=== PATIENT | male | born 1945 ===

== ENCOUNTER 2018-04-13 18:26 | Inpatient (IN) | payer MEDICARE ==
[~2018-04-13] VITALS: Ht 172.7 cm; Wt 89.8 kg
--- NOTE | 2018-04-13 18:30 | ED.ADGEN ---
Past History Past Medical History: CVA, Dementia, Depression, Other Past Surgical History: Other Adult General Chief Complaint Chief Complaint " .. My daughter sent me here... because she was worried I was having depression problems... " HPI HPI Patient is a 73 year old male who presents with above hx and complaints of depression. Pt. is a resident at [facility] since 12/28/2009. Pt. currently advised he has been depressed about his over all medical condition and two recent fellow pts residents that have been disruptive to his life at [place]. Pt. denies specific suicidal plan, but has had suicidal thoughts, or ideation. Pt.. states one of the new residence is up at many times during the night which causes disruption in his sleep. Patient does have a significant medical history of left-sided paraplegia. He has multiple medical problems secondary to CVA. Patient does have a history of dysphagia, diabetes, hypertension, chronic kidney disease, elevated cholesterol, iron deficiency anemia, anxiety disorder, heart failure, left-sided contractures, vitamin deficiencies -B, GERD, vascular dementia, behavior disturbance, constipation,dementia, and bipolar. Pt. has followed at [place] in past . Pt. Follows with Dr. Donte Ruiz. Pt. sent to ED for medical eval. prior to admission to [facility] unit. Review of Systems Review of Systems Constitutional: Denies fever or chills [] Eyes: Denies change in visual acuity, redness, or eye pain [] HENT: Denies nasal congestion or sore throat [] Respiratory: Denies cough or shortness of breath [] Cardiovascular: No additional information not addressed in HPI [] GI: Denies abdominal pain, nausea, vomiting, bloody stools or diarrhea [] : Denies dysuria or hematuria [] Musculoskeletal: Denies back pain or joint pain []Complaints of Lt paraplegia Integument: Denies rash or skin lesions [] Neurologic: Denies headache, focal weakness or sensory changes [] Endocrine: Denies polyuria or polydipsia [] All other systems were reviewed and found to be within normal limits, except as documented in this note. Family History Family History Noncontributory Current Medications Current Medications Current Medications Medications (Trade) Dose Ordered Sig/Shyam Start Time Stop Time Status Last Admin Dose Admin Lactated Ringer's 1,000 ml @ 100 mls/hr Q10H 04/13/18 18:32 04/14/18 04:31 DC 04/13/18 20:14 100 MLS/HR See nursing for group home medications Allergies Allergies Allergies Coded Allergies Type Severity Reaction Last Updated Verified morphine Allergy Unknown 04/13/18 Yes Physical Exam Physical Exam Constitutional: no acute distress, non-toxic appearance. [] HENT: Normocephalic, atraumatic, bilateral external ears normal, oropharynx moist, no oral exudates, nose normal. [] Eyes: PERRLA, EOMI, conjunctiva normal, no discharge. [] Neck: Normal range of motion, no tenderness, supple, no stridor. [] Cardiovascular:Heart rate regular rhythm, no murmur [] Lungs & Thorax: Bilateral breath sounds equal at apexes auscultation [] Abdomen: Bowel sounds normal, soft, no tenderness, no masses, no pulsatile masses. Scar. Distended abdomen Skin: Warm, dry, no erythema, no rash. [] Back: No tenderness, no CVA tenderness. [] Extremities: No tenderness, no cyanosis, no clubbing, sided paraplegic with contractions, no edema. [] Neurologic: Alert and oriented X 3, reports no changes in his motor function or sensory function, left-sided paraplegia with contractures Psychologic: Affect anxious, judgement unable to determine, mood depressed Current Patient Data Vital Signs Vital Signs Date Time Temp Pulse Resp B/P (MAP) Pulse Ox O2 Delivery O2 Flow Rate FiO2 04/13/18 22:35 84 22 155/74 (101) 97 Room Air 04/13/18 19:21 98.4 Lab Results Laboratory Tests Test 04/13/18 19:09 White Blood Count 9.5 x10^3/uL (4.0-11.0) Red Blood Count 4.23 x10^6/uL (4.30-5.70) L Hemoglobin 13.6 g/dL (13.0-17.5) Hematocrit 40.7 % (39.0-53.0) Mean Corpuscular Volume 96 fL (79-100) Mean Corpuscular Hemoglobin 32 pg (25-35) Mean Corpuscular Hemoglobin Concent 34 g/dL (31-37) Red Cell Distribution Width 14.5 % (11.5-14.5) Platelet Count 302 x10^3/uL (140-400) Neutrophils (%) (Auto) 43 % (31-73) Lymphocytes (%) (Auto) 45 % (24-48) Monocytes (%) (Auto) 9 % (0-9) Eosinophils (%) (Auto) 2 % (0-3) Basophils (%) (Auto) 1 % (0-3) Neutrophils # (Auto) 4.1 x10^3uL (1.8-7.7) Lymphocytes # (Auto) 4.2 x10^3/uL (1.0-4.8) Monocytes # (Auto) 0.9 x10^3/uL (0.0-1.1) Eosinophils # (Auto) 0.2 x10^3/uL (0.0-0.7) Basophils # (Auto) 0.1 x10^3/uL (0.0-0.2) Erythrocyte Sedimentation Rate 35 (0-15) H Prothrombin Time 9.6 SEC (9.4-11.4) Prothrombin Time INR 1.0 (0.9-1.1) PTT 25 SEC (23-33) D-Dimer (Radha) 0.52 mg/L (0.00-0.50) H Sodium Level 138 mmol/L (136-145) Potassium Level 4.5 mmol/L (3.5-5.1) Chloride Level 103 mmol/L (98-107) Carbon Dioxide Level 28 mmol/L (21-32) Anion Gap 7 (6-14) Blood Urea Nitrogen 28 mg/dL (8-26) H Creatinine 1.8 mg/dL (0.7-1.3) H Estimated GFR (Cockcroft-Gault) 37.2 Glucose Level 90 mg/dL (70-99) Calcium Level 9.6 mg/dL (8.5-10.1) Magnesium Level 2.2 mg/dL (1.8-2.4) Total Bilirubin 0.2 mg/dL (0.2-1.0) Direct Bilirubin 0.1 mg/dL (0.0-0.2) Aspartate Amino Transferase (AST) 51 U/L (15-37) H Alanine Aminotransferase (ALT) 103 U/L (16-63) H Alkaline Phosphatase 144 U/L (46-116) H Creatine Kinase 126 U/L (39-308) Troponin I Quantitative 0.021 ng/mL (0-0.055) VO-Osv-E-Type Natriuretic Peptide 52 pg/mL (0-124) Total Protein 7.7 g/dL (6.4-8.2) Albumin 3.9 g/dL (3.4-5.0) Lipase 234 U/L (73-393) EKG EKG My interpretation of EKG shows a sinus rhythm at 81 bpm. Some nonspecific contour changes in anterior septal region. But no findings acute STEMI with contralateral changes[] Radiology/Procedures Radiology/Procedures My interpretation of chest x-ray shows no acute cardio pulmonary findings. I interpretation CT shows no acute cerebral findings. Has findings of old infarct right frontal with encephalomalacia. See formal reports wihen available. Course & Med Decision Making Course & Med Decision Making Pertinent Labs and Imaging studies reviewed. (See chart for details) UA still pending at time of Admit- Pt. admit [facility]- Dr Flynn. Consult to Dr. Elizondo- for medical issues. Discussed with Dr. Elizondo. [] Final Impression Final Impression 1. Mental Status change[]-Increased Depression, Suicidal Ideation. 2. Left-sided paraplegia 3. History of diabetes 4. Elevated BUN and creatinine 28/1.8 5. Minimal elevation in d-dimer 0.5 2 6. Mild elevation in AST, ALT, alkaline phosphatase 51/103/144 7. Hx. Multiple Chronic Medical Issues Dragon Disclaimer Dragon Disclaimer This electronic medical record was generated, in whole or in part, using a voice recognition dictation system. TORI MCCLOUD MD Apr 13, 2018 18:30
[2018-04-13] MEDS ORDERED: IV RINGERS SOLUTION,LACTATED 1,000 ML IV SCH (18:32)
--- NOTE | 2018-04-13 19:15 | EKG ---
[address] [address] Test Date: 2018-04-13 Test Time: 19:09:48 Pat Name: REYNOLD GONZALEZ Department: Room: Gender: M Court Collections Officer: : 1945 Requested By: TORI MCCLOUD Order Number: [id number] Reading MD: Uriel Degroot Measurements Intervals [place] Rate: 81 P: 1 TN: 190 QRS: 12 QRSD: 78 T: 43 QT: 348 QTc: 409 Interpretive Statements SINUS RHYTHM QRS(T) CONTOUR ABNORMALITY CONSIDER ANTEROSEPTAL MYOCARDIAL DAMAGE POSSIBLY ABNORMAL ECG Electronically Signed On 04-16-2018 10:58:37 CDT by Uriel Degroot
--- NOTE | 2018-04-13 19:17 | RAD ---
EXAM: CT Head without IV contrast CLINICAL HISTORY: Mental status change, confusion COMPARISON: None. TECHNIQUE: Routine CT of the head without contrast. Soft tissues and bone windows were reviewed. PQRS compliance statement - One or more of the following individualized dose reduction techniques were utilized for this study: 1. Automated exposure control 2. Adjustment of the mA and/or kV according to patient size 3. Use of iterative reconstruction technique FINDINGS: There is no evidence of hemorrhage, mass or extra-axial fluid collection. Changes from old infarct with associated encephalomalacia seen in the right frontoparietal region extending to the deep white matter. Jaramillo-white differentiation is otherwise maintained with no evidence of edema. There are non-specific foci of hypodensity in the periventricular and subcortical white matter of the cerebral hemispheres. There is no mass effect or shift of the intracranial structures. The ventricles and cerebral sulci are prominent for the patients stated age consistent with generalized cerebral volume loss. The cerebellum and brainstem are unremarkable. The calvarium demonstrates no evidence of fracture or focal lesion. There is normal aeration of the visualized paranasal sinuses and mastoid air cells. The visualized portions of the orbits are normal. IMPRESSION: No evidence of acute intracranial process. Old infarct in the right frontoparietal region with associated encephalomalacia is seen. Electronically signed by: Mark Sandra MD (04/13/2018 7:14 PM) [facility]
--- NOTE | 2018-04-13 19:20 | RAD ---
EXAM: PORTABLE CHEST 1V DATE: 04/13/2018 6:53 PM INDICATION: Cough COMPARISON: No Prior FINDINGS/ IMPRESSION: The heart is not enlarged. Mediastinal and hilar contours are normal. No focal parenchymal airspace opacity. No pleural effusion or pneumothorax. Electronically signed by: Mark Sandra MD (04/13/2018 7:17 PM) [facility]
[2018-04-13 19:30] LABS: BASO # 0.1 x10^3/uL (0.0-0.2); BASO % 1 % (0-3); EOS # 0.2 x10^3/uL (0.0-0.7); EOS % 2 % (0-3); HEMATOCRIT 40.7 % (39.0-53.0); HEMOGLOBIN 13.6 g/dL (13.0-17.5); LYMPH # 4.2 x10^3/uL (1.0-4.8); LYMPH % 45 % (24-48); MEAN CORPUSCULAR HEMOGLOBIN 32 pg (25-35); MEAN CORPUSCULAR HGB CONC 34 g/dL (31-37); MEAN CORPUSCULAR VOLUME 96 fL (79-100); MONO # 0.9 x10^3/uL (0.0-1.1); MONO % 9 % (0-9); NEUT # 4.1 x10^3uL (1.8-7.7); NEUT % 43 % (31-73); PLATELET COUNT 302 x10^3/uL (140-400); RED BLOOD COUNT 4.23 x10^6/uL (4.30-5.70); RED CELL DISTRIBUTION WIDTH 14.5 % (11.5-14.5); WHITE BLOOD COUNT 9.5 x10^3/uL (4.0-11.0)
[2018-04-13 19:43] LABS: ALBUMIN 3.9 g/dL (3.4-5.0); CALCIUM 9.6 mg/dL (8.5-10.1); CREATININE 1.8 mg/dL (0.7-1.3); DIRECT BILIRUBIN 0.1 mg/dL (0.0-0.2); GFR 37.2; MAGNESIUM 2.2 mg/dL (1.8-2.4); POTASSIUM 4.5 mmol/L (3.5-5.1); TOTAL BILIRUBIN 0.2 mg/dL (0.2-1.0); TOTAL PROTEIN 7.7 g/dL (6.4-8.2)
[2018-04-13 20:40] LABS: SEDIMENTATION RATE 35 (0-15)
[2018-04-13] MEDS ORDERED: TRAZ-85 PO (21:43)
[2018-04-13] MEDS ORDERED: CHOL10003 PO (21:43)
[2018-04-13] MEDS ORDERED: BISA5TAB4 PO (21:43)
[2018-04-13] MEDS ORDERED: LISI10TA2 PO (21:43)
[2018-04-13] MEDS ORDERED: ASPI-612 PO (21:43)
[2018-04-13] MEDS ORDERED: BUSP10TA PO (21:43)
[2018-04-13] MEDS ORDERED: POLY17PO5 PO (21:43)
[2018-04-13] MEDS ORDERED: INSU100I13 SQ (21:43)
[2018-04-13] MEDS ORDERED: FINA5TAB4 PO (21:43)
[2018-04-13] MEDS ORDERED: VENL75CA6 PO (21:43)
[2018-04-13] MEDS ORDERED: BACL10TA PO (21:43)
[2018-04-13] MEDS ORDERED: CLOP75TA PO (21:43)
[2018-04-13] MEDS ORDERED: INSU100I11 SQ (21:43)
[2018-04-13] MEDS ORDERED: AMLO5TAB7 PO (21:43)
[2018-04-13] MEDS ORDERED: CYAN500T17 PO (21:43)
[2018-04-13] MEDS ORDERED: MAGNESIUM HYDROXIDE 2,400 MG/30 ML ORAL.SUSP. PO PRN (22:45)
[2018-04-13] MEDS ORDERED: ACETAMINOPHEN 325 MG TABLET PO PRN (22:45)
[2018-04-13] MEDS ORDERED: MAG HYDROX/AL HYDROX/SIMETH 30 ML ORAL.SUSP PO PRN (22:45)
[2018-04-13] MEDS ORDERED: METHYL SALICYLATE/MENTHOL TOPICAL OINTMENT 29GM TUBE. TP PRN (22:45)
--- NOTE | 2018-04-13 22:59 | PDOC ---
Exam Note: Clayton Note: Please also refer to the separate dictated note~for this date of service dictated separately.~Patient seen individually. Discussed the patient with Nursing staff reviewed the chart.~Reviewed interim history and current functioning. Reviewed vital signs,~Labs/ Radiology~and current medications noted below. Continue current treatment with the changes noted in the dictated addendum note Assessment: Vital Signs: Vital Signs Date Time Temp Pulse Resp B/P (MAP) Pulse Ox O2 Delivery O2 Flow Rate FiO2 04/13/18 22:35 84 22 155/74 (101) 97 Room Air 04/13/18 19:21 98.4 Labs: Laboratory Tests Test 04/13/18 19:09 White Blood Count 9.5 x10^3/uL (4.0-11.0) Red Blood Count 4.23 x10^6/uL (4.30-5.70) L Hemoglobin 13.6 g/dL (13.0-17.5) Hematocrit 40.7 % (39.0-53.0) Mean Corpuscular Volume 96 fL (79-100) Mean Corpuscular Hemoglobin 32 pg (25-35) Mean Corpuscular Hemoglobin Concent 34 g/dL (31-37) Red Cell Distribution Width 14.5 % (11.5-14.5) Platelet Count 302 x10^3/uL (140-400) Neutrophils (%) (Auto) 43 % (31-73) Lymphocytes (%) (Auto) 45 % (24-48) Monocytes (%) (Auto) 9 % (0-9) Eosinophils (%) (Auto) 2 % (0-3) Basophils (%) (Auto) 1 % (0-3) Neutrophils # (Auto) 4.1 x10^3uL (1.8-7.7) Lymphocytes # (Auto) 4.2 x10^3/uL (1.0-4.8) Monocytes # (Auto) 0.9 x10^3/uL (0.0-1.1) Eosinophils # (Auto) 0.2 x10^3/uL (0.0-0.7) Basophils # (Auto) 0.1 x10^3/uL (0.0-0.2) Erythrocyte Sedimentation Rate 35 (0-15) H Prothrombin Time 9.6 SEC (9.4-11.4) Prothrombin Time INR 1.0 (0.9-1.1) PTT 25 SEC (23-33) D-Dimer (Radha) 0.52 mg/L (0.00-0.50) H Sodium Level 138 mmol/L (136-145) Potassium Level 4.5 mmol/L (3.5-5.1) Chloride Level 103 mmol/L (98-107) Carbon Dioxide Level 28 mmol/L (21-32) Anion Gap 7 (6-14) Blood Urea Nitrogen 28 mg/dL (8-26) H Creatinine 1.8 mg/dL (0.7-1.3) H Estimated GFR (Cockcroft-Gault) 37.2 Glucose Level 90 mg/dL (70-99) Calcium Level 9.6 mg/dL (8.5-10.1) Magnesium Level 2.2 mg/dL (1.8-2.4) Total Bilirubin 0.2 mg/dL (0.2-1.0) Direct Bilirubin 0.1 mg/dL (0.0-0.2) Aspartate Amino Transferase (AST) 51 U/L (15-37) H Alanine Aminotransferase (ALT) 103 U/L (16-63) H Alkaline Phosphatase 144 U/L (46-116) H Creatine Kinase 126 U/L (39-308) Troponin I Quantitative 0.021 ng/mL (0-0.055) CQ-Vur-E-Type Natriuretic Peptide 52 pg/mL (0-124) Total Protein 7.7 g/dL (6.4-8.2) Albumin 3.9 g/dL (3.4-5.0) Lipase 234 U/L (73-393) Current Medications: Meds: Current Medications Lactated Ringer's 1,000 ml @ 100 mls/hr Q10H IV Last administered on at 20:14; Start 04/13/18 at 18:32; Stop 04/14/18 at 04:31 Acetaminophen (Tylenol) 650 mg PRN Q6HRS PRN PO PAIN / TEMP; Start 04/13/18 at 22:45 Multi-Ingredient Ointment (Analgesic [place]) 1 gila PRN QID PRN TP MUSCLE PAIN; Start 04/13/18 at 22:45 Al Hydroxide/Mg Hydroxide (Mylanta Plus Xs) 15 ml PRN AFTMEALHC PRN PO DYSPEPSIA; Start 04/13/18 at 22:45 Magnesium Hydroxide (Milk Of Magnesia) 2,400 mg PRN QHS PRN PO CONSTIPATION; Start 04/13/18 at 22:45 Bisacodyl (Dulcolax Tab) 5 mg PRN DAILY PRN PO CONSTIPATION; Start 04/13/18 at 23:00; Status UNV Vitamin D (Vitamin D3) 1,000 unit DAILY PO ; Start 04/14/18 at 09:00; Status UNV Clopidogrel Bisulfate (Plavix) 75 mg DAILY PO ; Start 04/14/18 at 09:00; Status UNV Insulin Glargine (Lantus) 36 units BID SQ ; Start 04/14/18 at 09:00; Status UNV Insulin Human Lispro (HumaLOG) 32 units TIDWMEALS SQ ; Start 04/14/18 at 08:00; Status UNV Lisinopril (Prinivil) 10 mg DAILY PO ; Start 04/14/18 at 09:00; Status UNV Amlodipine Besylate (Norvasc) 5 mg DAILY PO ; Start 04/14/18 at 09:00; Status UNV Aspirin (Aspirin Enteric Coated) 81 mg DAILYWBKFT PO ; Start 04/14/18 at 08:00; Status UNV Baclofen (Lioresal) 5 mg TID PO ; Start 04/14/18 at 09:00; Status UNV Buspirone HCl (Buspar) 10 mg TID PO ; Start 04/14/18 at 09:00; Status UNV Cyanocobalamin (Vitamin B-12) 500 mcg DAILY PO ; Start 04/14/18 at 09:00; Status UNV Finasteride (Proscar) 5 mg DAILY PO ; Start 04/14/18 at 09:00; Status UNV Polyethylene Glycol (miraLAX) 17 gm DAILY PO ; Start 04/14/18 at 09:00; Status UNV Trazodone HCl (Desyrel) 50 mg QHS PO ; Start 04/13/18 at 23:00; Status UNV Venlafaxine HCl (Effexor Xr) 112.5 mg DAILY PO ; Start 04/14/18 at 09:00; Status UNV Active Scripts Active Reported Humalog (Insulin Lispro) 100 Unit/1 Ml Insuln.pen 2-10 Unit SQ TIDWMEALS Buspirone Hcl 10 Mg Tablet 10 Mg PO TID Venlafaxine Hcl Er (Venlafaxine Hcl) 75 Mg Cap.er.24h 112.5 Mg PO DAILY Trazodone Hcl 50 Mg Tablet 50 Mg PO HS Lantus Solostar (Insulin Glargine,Hum.rec.anlog) 100 Unit/1 Ml Insuln.pen 36 Unit SQ BID Baclofen 10 Mg Tablet 5 Mg PO TID Humalog (Insulin Lispro) 100 Unit/1 Ml Insuln.pen 32 Unit SQ TIDWMEALS Miralax (Polyethylene Glycol 3350) 17 Gm Powd.pack 17 Gm PO DAILY Lisinopril 10 Mg Tablet 10 Mg PO DAILY Finasteride 5 Mg Tablet 5 Mg PO DAILY B-12 (Cyanocobalamin (Vitamin B-12)) 500 Mcg Tablet 500 Mcg PO DAILY Clopidogrel (Clopidogrel Bisulfate) 75 Mg Tablet 75 Mg PO DAILY Vitamin D3 (Cholecalciferol (Vitamin D3)) 1,000 Unit Tablet 1,000 Unit PO DAILY Bisacodyl 5 Mg Tablet. 5 Mg PO PRN DAILY PRN Amlodipine Besylate 5 Mg Tablet 5 Mg PO DAILY Aspirin Ec (Aspirin) 81 Mg Tablet.dr 81 Mg PO DAILY I have reviewed the current psychotropics carefully including drug interactions. Risk benefit ratio favors no change other than as noted in my dictated progress note. Diagnosis: Problems: (1) Altered mental status, unspecified ANTHONY MCMAHAN MD Apr 13, 2018 22:59
[2018-04-13] MEDS ORDERED: traZODone 50 MG TABLET. PO SCH (23:00)
[2018-04-13] MEDS ORDERED: BACLOFEN 10 MG TABLET PO SCH (23:00)
[2018-04-13] MEDS: BACLOFEN 10 MG TABLET PO SCH (23:00)
[2018-04-13] MEDS ORDERED: BISACODYL TAB 5 MG TABLET.DR. PO PRN (23:00)
[2018-04-13] MEDS: busPIRone 10 MG TABLET. PO SCH (23:15)
[2018-04-13] MEDS ORDERED: DEXTROSE 50% 25 GM / 50ML DISP.SYRIN. IV PRN (23:15)
[2018-04-13] MEDS: traZODone 50 MG TABLET. PO SCH (23:15)
[2018-04-13 23:49] VITALS: BP 161/80
[2018-04-14 05:33] LABS: BACTERIA,URINE 0 /HPF (0-FEW); BILIRUBIN,URINE NEG (NEG); CLARITY,URINE CLEAR; COLOR,URINE STRAW; GLUCOSE,URINE NEG (NEG); NITRITE,URINE NEG (NEG); RBC,URINE OCC /HPF (0-2); UROBILINOGEN,URINE 0.2 mg/dL (0.2 mg/dL); WBC,URINE OCC /HPF (0-4)
[2018-04-14 06:14] VITALS: BP 133/64
[2018-04-14 08:18] LABS: BASO % 1 % (0-3); EOS # 0.2 x10^3/uL (0.0-0.7); EOS % 3 % (0-3); HEMATOCRIT 39.6 % (39.0-53.0); HEMOGLOBIN 13.4 g/dL (13.0-17.5); LYMPH # 2.9 x10^3/uL (1.0-4.8); LYMPH % 37 % (24-48); MEAN CORPUSCULAR HEMOGLOBIN 32 pg (25-35); MEAN CORPUSCULAR HGB CONC 34 g/dL (31-37); MEAN CORPUSCULAR VOLUME 96 fL (79-100); MONO # 0.6 x10^3/uL (0.0-1.1); MONO % 7 % (0-9); NEUT # 4.1 x10^3uL (1.8-7.7); NEUT % 53 % (31-73); PLATELET COUNT 301 x10^3/uL (140-400); RED BLOOD COUNT 4.14 x10^6/uL (4.30-5.70); RED CELL DISTRIBUTION WIDTH 14.6 % (11.5-14.5); WHITE BLOOD COUNT 7.8 x10^3/uL (4.0-11.0)
[2018-04-14 08:26] LABS: CALCIUM 9.5 mg/dL (8.5-10.1); CREATININE 1.7 mg/dL (0.7-1.3); GFR 39.7; POTASSIUM 5.1 mmol/L (3.5-5.1)
[2018-04-14] MEDS: busPIRone 10 MG TABLET. PO SCH ×3 (08:45→20:40)
[2018-04-14] MEDS: BACLOFEN 10 MG TABLET PO SCH ×3 (08:46→20:40)
[2018-04-14] MEDS: VENLAFAXINE XR 37.5 MG CAP.ER.24H. PO SCH (08:48)
[2018-04-14] MEDS: ASPIRIN ENTERIC COATED 81 MG TABLET.DR. PO SCH (08:48)
[2018-04-14] MEDS: INSULIN GLARGINE 300 UNITS/3 ML INSULN.PEN. SQ SCH ×2 (09:00→20:42)
[2018-04-14] MEDS: CYANOCOBALAMIN (VITAMIN B-12) 1,000 MCG TABLET. PO SCH (09:00)
[2018-04-14] MEDS: FINASTERIDE 5 MG TABLET PO SCH (09:00)
[2018-04-14] MEDS ORDERED: BACLOFEN 10 MG TABLET PO SCH (09:00)
[2018-04-14] MEDS ORDERED: VENLAFAXINE XR 37.5 MG CAP.ER.24H. PO SCH (09:00)
[2018-04-14] MEDS: POLYETHYLENE GLYCOL 3350 17 GM PACKET. PO SCH (09:00)
[2018-04-14] MEDS: CLOPIDOGREL BISULFATE 75 MG TABLET PO SCH (09:00)
[2018-04-14] MEDS ORDERED: busPIRone 10 MG TABLET. PO SCH (09:00)
[2018-04-14] MEDS: CHOLECALCIFEROL (VITAMIN D3) 1,000 UNIT TABLET PO SCH (09:00)
[2018-04-14] MEDS: LISINOPRIL 10 MG TABLET PO SCH (09:00)
[2018-04-14] MEDS: amLODIPine BESYLATE 5 MG TABLET PO SCH (09:00)
[2018-04-14] MEDS: INSULIN LISPRO 300 UNITS/3 ML INSULN.PEN. SQ SCH ×6 (10:11→17:00)
[2018-04-14 12:10] LABS: THYROXINE 6.7 ug/dL (4.5-12.0)
--- NOTE | 2018-04-14 13:05 | RAD ---
Bilateral lower extremity venous ultrasound: History: Increased d-dimer, edema Sonographic evaluation including grayscale, color flow and spectral Doppler analysis of the deep veins of the lower extremities was performed. The femoral and popliteal veins demonstrate normal compressibility and normal responses to distal augmentation maneuvers. Color imaging of those vessels shows no evidence of intraluminal clot. The visualized deep veins in both calves are patent. IMPRESSION: There is no sonographic evidence of deep vein thrombosis in either lower extremity. Electronically signed by: Matthew Abreu MD (04/14/2018 1:02 PM) [facility]
[2018-04-14 16:30] VITALS: BP 143/79
[2018-04-14] MEDS: traZODone 50 MG TABLET. PO SCH (20:39)
--- NOTE | 2018-04-14 21:01 | PDOC ---
Exam Note: Clayton Note: Please also refer to the separate dictated note~for this date of service dictated separately.~Patient seen individually. Discussed the patient with Nursing staff reviewed the chart.~Reviewed interim history and current functioning. Reviewed vital signs,~Labs/ Radiology~and current medications noted below. Continue current treatment with the changes noted in the dictated addendum note Assessment: Vital Signs: Vital Signs Date Time Temp Pulse Resp B/P (MAP) Pulse Ox O2 Delivery O2 Flow Rate FiO2 04/14/18 16:30 97.9 76 20 143/79 (100) 98 04/14/18 06:14 Room Air I&O Intake and Output 04/14/18 07:00 Intake Total 490 ml Balance 490 ml Intake Oral 240 ml IV Total 250 ml Labs: Laboratory Tests Test 04/14/18 03:45 04/14/18 07:30 04/14/18 10:06 04/14/18 12:39 Urine Collection Type Unknown Urine Color Straw Urine Clarity Clear Urine pH 7.0 Urine Specific [place] 1.010 Urine Protein Neg (NEG-TRACE) Urine Glucose (UA) Neg mg/dL (NEG) Urine Ketones (Stick) Neg mg/dL (NEG) Urine Blood Neg (NEG) Urine Nitrite Neg (NEG) Urine Bilirubin Neg (NEG) Urine Urobilinogen Dipstick 0.2 mg/dL (0.2 mg/dL) Urine Leukocyte Esterase Neg (NEG) Urine RBC Occ /HPF (0-2) Urine WBC Occ /HPF (0-4) Urine Squamous Epithelial Cells None /LPF Urine Bacteria 0 /HPF (0-FEW) White Blood Count 7.8 x10^3/uL (4.0-11.0) Red Blood Count 4.14 x10^6/uL (4.30-5.70) L Hemoglobin 13.4 g/dL (13.0-17.5) Hematocrit 39.6 % (39.0-53.0) Mean Corpuscular Volume 96 fL (79-100) Mean Corpuscular Hemoglobin 32 pg (25-35) Mean Corpuscular Hemoglobin Concent 34 g/dL (31-37) Red Cell Distribution Width 14.6 % (11.5-14.5) H Platelet Count 301 x10^3/uL (140-400) Neutrophils (%) (Auto) 53 % (31-73) Lymphocytes (%) (Auto) 37 % (24-48) Monocytes (%) (Auto) 7 % (0-9) Eosinophils (%) (Auto) 3 % (0-3) Basophils (%) (Auto) 1 % (0-3) Neutrophils # (Auto) 4.1 x10^3uL (1.8-7.7) Lymphocytes # (Auto) 2.9 x10^3/uL (1.0-4.8) Monocytes # (Auto) 0.6 x10^3/uL (0.0-1.1) Eosinophils # (Auto) 0.2 x10^3/uL (0.0-0.7) Basophils # (Auto) 0.0 x10^3/uL (0.0-0.2) Sodium Level 139 mmol/L (136-145) Potassium Level 5.1 mmol/L (3.5-5.1) Chloride Level 105 mmol/L (98-107) Carbon Dioxide Level 28 mmol/L (21-32) Anion Gap 6 (6-14) Blood Urea Nitrogen 27 mg/dL (8-26) H Creatinine 1.7 mg/dL (0.7-1.3) H Estimated GFR (Cockcroft-Gault) 39.7 Glucose Level 101 mg/dL (70-99) H Calcium Level 9.5 mg/dL (8.5-10.1) Iron Level 76 ug/dL (65-175) Total Iron Binding Capacity 322 ug/dL (250-450) Iron Saturation 24 % (15-34) Triglycerides Level 145 mg/dL (0-150) Cholesterol Level 194 mg/dL (0-200) LDL Cholesterol, Calculated 123 mg/dL (0-100) H VLDL Cholesterol, Calculated 29 mg/dL (0-40) Non-HDL Cholesterol Calculated 152 mg/dL (0-129) H HDL Cholesterol 42 mg/dL (40-60) Cholesterol/HDL Ratio 4.0 Thyroid Stimulating Hormone (TSH) 2.158 uIU/mL (0.358-3.740) Thyroxine (T4) 6.7 ug/dL (4.5-12.0) Total Triiodothyronine (TT3) 113 ng/dL (71-180) Glucose (Fingerstick) 154 mg/dL (70-99) H 89 mg/dL (70-99) Test 04/14/18 16:51 Glucose (Fingerstick) 71 mg/dL (70-99) Current Medications: Meds: Current Medications Lactated Ringer's 1,000 ml @ 100 mls/hr Q10H IV Last administered on at 20:14; Start 04/13/18 at 18:32; Stop 04/14/18 at 04:31; Status DC Acetaminophen (Tylenol) 650 mg PRN Q6HRS PRN PO PAIN / TEMP; Start 04/13/18 at 22:45 Multi-Ingredient Ointment (Analgesic [place]) 1 gila PRN QID PRN TP MUSCLE PAIN; Start 04/13/18 at 22:45 Al Hydroxide/Mg Hydroxide (Mylanta Plus Xs) 15 ml PRN AFTMEALHC PRN PO DYSPEPSIA; Start 04/13/18 at 22:45 Magnesium Hydroxide (Milk Of Magnesia) 2,400 mg PRN QHS PRN PO CONSTIPATION; Start 04/13/18 at 22:45 Bisacodyl (Dulcolax Tab) 5 mg PRN DAILY PRN PO CONSTIPATION; Start 04/13/18 at 23:00 Vitamin D (Vitamin D3) 1,000 unit DAILY PO Last administered on 04/14/18at 09:00 ; Start 04/14/18 at 09:00 Clopidogrel Bisulfate (Plavix) 75 mg DAILY PO Last administered on 04/14/18at 09 :00; Start 04/14/18 at 09:00 Insulin Glargine (Lantus) 36 units BID SQ Last administered on 04/14/18at 20:42 ; Start 04/14/18 at 09:00 Insulin Human Lispro (HumaLOG) 32 units TIDWMEALS SQ Last administered on at 10:11; Start 04/14/18 at 08:00 Lisinopril (Prinivil) 10 mg DAILY PO Last administered on 04/14/18at 09:00; Start 04/14/18 at 09:00 Amlodipine Besylate (Norvasc) 5 mg DAILY PO Last administered on 04/14/18at 09: 00; Start 04/14/18 at 09:00 Aspirin (Aspirin Enteric Coated) 81 mg DAILYWBKFT PO Last administered on at 08:48; Start 04/14/18 at 08:00 Baclofen (Lioresal) 5 mg TID PO ; Start 04/14/18 at 09:00; Stop 04/14/18 at 09: 00; Status DC Buspirone HCl (Buspar) 10 mg TID PO ; Start 04/14/18 at 09:00; Stop 04/14/18 at 09:00; Status DC Cyanocobalamin (Vitamin B-12) 500 mcg DAILY PO Last administered on 04/14/18at 09:00; Start 04/14/18 at 09:00 Finasteride (Proscar) 5 mg DAILY PO Last administered on 04/14/18at 09:00; Start 04/14/18 at 09:00 Polyethylene Glycol (miraLAX) 17 gm DAILY PO Last administered on 04/14/18at 09: 00; Start 04/14/18 at 09:00 Trazodone HCl (Desyrel) 50 mg QHS PO ; Start 04/13/18 at 23:00; Stop 04/13/18 at 23:00; Status DC Venlafaxine HCl (Effexor Xr) 112.5 mg DAILY PO ; Start 04/14/18 at 09:00; Stop 04/14/18 at 09:00; Status DC Baclofen (Lioresal) 5 mg TID PO Last administered on 04/14/18at 20:40; Start at 23:00 Baclofen (Lioresal) 5 mg TID PO ; Start 04/13/18 at 23:00; Status UNV Trazodone HCl (Desyrel) 50 mg QHS PO Last administered on 04/14/18at 20:39; Start 04/13/18 at 23:15 Venlafaxine HCl (Effexor Xr) 112.5 mg DAILY PO Last administered on 04/14/18at 08:48; Start 04/14/18 at 09:00 Buspirone HCl (Buspar) 10 mg TID PO Last administered on 04/14/18at 20:40; Start 04/13/18 at 23:15 Insulin Human Lispro (HumaLOG) 0-5 UNITS TIDWMEALS SQ Last administered on 04/14at 10:24; Start 04/14/18 at 08:00 Dextrose 12.5 gm PRN Q15MIN PRN IV SEE COMMENTS; Start 04/13/18 at 23:15 Influenza Virus Vaccine (Afluria Trivalent Syringe) 0.5 ml ONCE ONCE VAX IM ; Start 04/14/18 at 09:00; Stop 04/14/18 at 09:01; Status UNV Influenza Virus Vaccine (Afluria Trivalent Syringe) 0.5 ml ONCE ONCE VAX IM ; Start 04/14/18 at 09:00; Stop 04/14/18 at 09:01; Status DC Active Scripts Active Reported Humalog (Insulin Lispro) 100 Unit/1 Ml Insuln.pen 2-10 Unit SQ TIDWMEALS Buspirone Hcl 10 Mg Tablet 10 Mg PO TID Venlafaxine Hcl Er (Venlafaxine Hcl) 75 Mg Cap.er.24h 112.5 Mg PO DAILY Trazodone Hcl 50 Mg Tablet 50 Mg PO HS Lantus Solostar (Insulin Glargine,Hum.rec.anlog) 100 Unit/1 Ml Insuln.pen 36 Unit SQ BID Baclofen 10 Mg Tablet 5 Mg PO TID Humalog (Insulin Lispro) 100 Unit/1 Ml Insuln.pen 32 Unit SQ TIDWMEALS Miralax (Polyethylene Glycol 3350) 17 Gm Powd.pack 17 Gm PO DAILY Lisinopril 10 Mg Tablet 10 Mg PO DAILY Finasteride 5 Mg Tablet 5 Mg PO DAILY B-12 (Cyanocobalamin (Vitamin B-12)) 500 Mcg Tablet 500 Mcg PO DAILY Clopidogrel (Clopidogrel Bisulfate) 75 Mg Tablet 75 Mg PO DAILY Vitamin D3 (Cholecalciferol (Vitamin D3)) 1,000 Unit Tablet 1,000 Unit PO DAILY Bisacodyl 5 Mg Tablet.dr 5 Mg PO PRN DAILY PRN Amlodipine Besylate 5 Mg Tablet 5 Mg PO DAILY Aspirin Ec (Aspirin) 81 Mg Tablet.dr 81 Mg PO DAILY I have reviewed the current psychotropics carefully including drug interactions. Risk benefit ratio favors no change other than as noted in my dictated progress note. Diagnosis: Problems: (1) Altered mental status, unspecified ANTHONY MCMAHAN MD Apr 14, 2018 21:01
[2018-04-14 22:07] LABS: HEMOGLOBIN A1C 7.5 % (4.8-5.6)
--- NOTE | 2018-04-15 00:07 | CONS ---
DATE OF CONSULTATION: 04/14/2018 REASON FOR CONSULTATION: Medical management. HISTORY OF PRESENT ILLNESS: The patient is a 73-year-old male patient, a resident at [facility] in [place], who was apparently admitted on account of suicidal ideation and then he denied any suicidal ideation, makes statements that he wants to strangle his roommate with ____ stating that the devil is telling him to do that. He is here for inpatient psychiatric stabilization. PAST MEDICAL HISTORY: Significant for type 2 diabetes, hypertension, right middle cerebral artery territory infarct with left side hemiplegia, hypothyroidism, hyperlipidemia, benign prostatic hypertrophy, iron deficiency anemia, vitamin D and B12 deficiency. PAST SURGICAL HISTORY: Significant for appendectomy. ALLERGIES: He is allergic to MORPHINE. MEDICATIONS: He is currently on following medications: He is on baclofen 10 mg 3 times a day, Plavix 75 mg once a day, amlodipine besylate 5 mg daily, lisinopril 10 mg once a day, aspirin 81 mg daily, trazodone 50 mg at bedtime, venlafaxine hydrochloride 75 mg once a day, buspirone 10 mg 3 times a day, bisacodyl 5 mg tablet once a day as needed for constipation, polyethylene glycol 17 grams daily. He is on Lantus 36 units twice a day and Humalog insulin 32 units before meals and Humalog insulin 2 to 10 units subcutaneously with meals. He is on cyanocobalamin 500 mcg p.o. daily, cholecalciferol 1000 units p.o. daily, and finasteride 5 mg once a day. FAMILY HISTORY: Noncontributory. SOCIAL HISTORY: He is a resident at [facility]. He has 2 sons and a daughter. He used to smoke before. He drinks alcohol occasionally, but does not use any drugs. PHYSICAL EXAMINATION: GENERAL: When I examined him, he was resting flat, comfortably in bed and in no apparent respiratory distress. He is awake, alert, responding appropriately. He was pale, but no jaundice, cyanosis, or thyromegaly. No jugular venous distension. No limb edema. VITAL SIGNS: Her heart rate was 78, blood pressure was 133/64, temperature was 97.7, respiratory rate 20, and oxygen saturation was 98% on room air. HEAD, EYES, EARS, NOSE, and THROAT: Showed normocephalic, atraumatic. NECK: Supple. HEART: Showed normal first and second heart sounds with no gallop, rub or murmur. CHEST: Clear to auscultation. No crepitation or rhonchi. ABDOMEN: Distended, soft, and nontender. No guarding or rigidity. No organomegaly. Hernial orifice intact. Bowel sounds normal. NEUROLOGIC: He was awake, alert, and responding appropriately. Cranial nerves intact. He has right middle cerebral artery territory infarct with left side hemiplegia. He has fixed flexion contraction of his left upper and left lower extremities. He is mostly chair bound. LABORATORY DATA: Showed a white cell count of 7800, hemoglobin 13, hematocrit 39, MCV 96, and platelet count of 301,000. His chemistry showed a serum sodium of 139, potassium 5.1, chloride 105, bicarbonate 28, anion gap of 6, BUN 27, creatinine 1.7, estimated GFR was 39 mL per minute. His glucose was 101, calcium was 9.5. Total bilirubin is normal; however, AST and ALT are elevated. His serum triglycerides were 145, total cholesterol was 194, LDL cholesterol 123, VLDL was 29, HDL cholesterol was 42 and the ratio was 4. His serum lipase was 134 and TSH was 2.158. His prothrombin time was 9.6, INR of 1, APTT was 25 and D-dimer was 0.52. His urinalysis was essentially unremarkable. His CT scan of the head showed that there is no evidence of hemorrhage, mass, or extraaxial fluid collection, changes from old infarct with associated encephalomalacia seen in the right frontotemporal region extending to the deep white matter. The molina white matter differentiation is otherwise maintained with no evidence of edema. There are no specific foci of hypodensity in the periventricular and subcortical white matter of the cerebral hemispheres. There is no mass effect or shift of the mid intracranial structure. The ventricles and cerebral sulci are prominent for the patient's stated age consistent with generalized cerebral volume loss. The cerebellum and brainstem are unremarkable. The calvarium demonstrates no evidence of fracture or focal lesion. There is normal aeration of the visualized paranasal sinuses and mastoid air cells. The visualized portion of the orbits are normal. His chest x-ray showed the heart is not enlarged, mediastinal and hilar contours are normal. No focal parenchymal airspace opacity. No pleural effusion or pneumothorax. He did have a venous Doppler ultrasound of his left lower extremity, which showed that there is no sonographic evidence of deep vein thrombosis in either lower extremity. IMPRESSION: In summary, this is a 73-year-old male patient, a resident at [facility], was admitted on account of suicidal ideation that he denied. He also admits that he made statement that he wants to strangle his roommate with ____ and stating that the devil has told him to do that. He was admitted for inpatient psychiatric stabilization. He has multiple medical problems including type 2 diabetes mellitus, insulin-dependent; hypertension, hyperlipidemia, benign prostatic hypertrophy, iron deficiency anemia, hypothyroidism, and benign prostatic hypertrophy as well as left-sided hemiplegia. He has also chronic kidney disease, his estimated GFR about 37. He has also deranged liver enzymes consistent probably with nonalcohol steatohepatitis. So all in all, he seemed to be medically stable. I would probably arrange for him to have an abdominal ultrasound to rule out any problem with his gallbladder with intra or extrahepatic biliary obstruction and that will also evaluate for any obstructive nephropathy if any as he is known to have benign prostatic hypertrophy that might be the cause of his chronic kidney disease. Thank you, Dr. Flynn for allowing me to participate in the care of this patient. CLEMENCIA ROBERTSON MD DR: GEOVANNY/yudi JOB#: [id number] / [id number]
[2018-04-15 05:55] VITALS: BP 102/64
[2018-04-15] MEDS: INSULIN LISPRO 300 UNITS/3 ML INSULN.PEN. SQ SCH ×6 (08:00→17:00)
[2018-04-15] MEDS: ASPIRIN ENTERIC COATED 81 MG TABLET.DR. PO SCH (09:46)
[2018-04-15] MEDS: busPIRone 10 MG TABLET. PO SCH ×3 (09:46→21:32)
[2018-04-15] MEDS: VENLAFAXINE XR 37.5 MG CAP.ER.24H. PO SCH (09:47)
[2018-04-15] MEDS: amLODIPine BESYLATE 5 MG TABLET PO SCH (09:48)
[2018-04-15] MEDS: POLYETHYLENE GLYCOL 3350 17 GM PACKET. PO SCH (09:48)
[2018-04-15] MEDS: BACLOFEN 10 MG TABLET PO SCH ×3 (09:48→21:32)
[2018-04-15] MEDS: CLOPIDOGREL BISULFATE 75 MG TABLET PO SCH (09:48)
[2018-04-15] MEDS: FINASTERIDE 5 MG TABLET PO SCH (09:49)
[2018-04-15] MEDS: LISINOPRIL 10 MG TABLET PO SCH (09:49)
[2018-04-15] MEDS: CHOLECALCIFEROL (VITAMIN D3) 1,000 UNIT TABLET PO SCH (09:50)
[2018-04-15] MEDS: CYANOCOBALAMIN (VITAMIN B-12) 1,000 MCG TABLET. PO SCH (09:50)
[2018-04-15] MEDS: INSULIN GLARGINE 300 UNITS/3 ML INSULN.PEN. SQ SCH ×2 (10:02→21:45)
--- NOTE | 2018-04-15 11:10 | RAD ---
Complete abdominal ultrasound History: Abnormal LFT. Impaired kidney function.. Findings: Aorta: Poorly visualized, due to body habitus. Inferior vena cava: Poorly visualized Pancreas: Poorly visualized Liver: Increased echogenicity compatible with fatty infiltration. Poor penetration of the liver may limit evaluation for lesion. Gallbladder: Not visualized. Bile ducts: No evidence of dilatation Right kidney: 9.3 cm length. No evidence of hydronephrosis. Left kidney: Not visualized, obscured by bowel gas. Spleen: Not enlarged Impression: 1. Limited exam, due to body habitus and bowel gas. 2. Fatty infiltration of the liver. 3. Gallbladder not visualized. 4. Left kidney not visualized, obscured by bowel gas. Electronically signed by: Jose Qureshi MD (04/15/2018 11:07 AM) [facility]
--- NOTE | 2018-04-15 15:18 | HP ---
ADMIT DATE: 04/13/2018 PSYCHIATRIC ADMISSION HISTORY/EVALUATION This late entry 04/14/2018 covers elements, not covered in my initial note. I met with the patient in the evening of 04/14/2018. I previously discussed with nursing staff on several occasions including prior to the patient's admission after he was referred to us from [facility] by Dr. Annelise Pearson, his primary care physician, on account of worsening agitation, suicidal ideation after he made threats to strangle his roommate with a call light. He states that the devil tells him to do these things. CHIEF COMPLAINT: "Ex-roommate hollers a lot as I get angry. Yes, I said that. They should change." HISTORY OF PRESENT ILLNESS: The patient has a history of worsening symptoms of depression, short term memory deficits, increasing psychotic symptoms, agitation. Marked mood lability is noted. He has had sleep and appetite changes. He is appeared paranoid, anxious, agitated, making statements that the devil is telling him to hurt his roommate. PAST PSYCHIATRIC HISTORY: As above. MEDICAL HISTORY: Status post left-sided hemiplegia, dysphagia, type 2 diabetes mellitus, hypertension, chronic kidney disease, hyperlipidemia, iron deficiency anemia, muscle spasms, chronic constipation, BPH, heart failure, contracture of left hand, vitamin B deficiency, GERD, vascular dementia, Accu-Cheks a.c. and h.s. DIET: Mechanical soft, takes meds whole. Ambulates in wheelchair with Kurt lift. ALLERGIES: MORPHINE. CODE STATUS: DNR. CURRENT PSYCHOTROPICS: Trazodone 50 mg at bedtime, Effexor XR 112.5 mg daily, BuSpar 10 t.i.d. FAMILY HISTORY: Noncontributory. SOCIAL HISTORY: No alcohol or drug abuse, physical, sexual or elder abuse history is noted. He is not known to be a perpetrator. 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 REACTION TO HOSPITALIZATION: The patient is accepting of it. ASSETS: The patient is being admitted by his daughter, Dannielle Kessler, who is his power of assistant district attorney and he has supportive living at the [facility] in support of his family. MENTAL STATUS EXAMINATION: The patient was seen individually evening of 04/14/2018 in his room. He is in his wheelchair, oriented to himself and situation. He knew the president, it was Porfirio Vargas, knew it was March 2018. Able to do one step, only on serial sevens, spelled world forward no error, backward 2 errors. Speech is coherent, abstraction fair. Mood is somewhat depressed, anxious. He is suspicious. No active suicidal or homicidal ideation. Attention span short. Language function intact. Intellect average. Short term memory is impaired as noted. IMPRESSION: Major depressive disorder, recurrent with psychotic features; anxiety disorder, unspecified; impulse control disorder, unspecified; major neurocognitive disorder, early vascular with delusion, depression. Rest as above. PLAN: Admit to geropsychiatry unit at [facility]. I will see the patient daily individually from a psychiatric standpoint, medical followup with Dr. Elizondo/Dr. Lucas. Continue the patient on his current psychotropics, observe baseline, adjust further as clinically indicated. ESTIMATED LENGTH OF STAY: 7-10 days. DISPOSITION: Plans back to [facility]. MAN Refugio MCMAHAN MD DR: CHRISTIAN/yudi JOB#: [id number] / [id number]
[2018-04-15 16:08] VITALS: BP 106/73
[2018-04-15] MEDS: traZODone 50 MG TABLET. PO SCH (21:32)
--- NOTE | 2018-04-15 22:43 | PDOC ---
Exam Note: Clayton Note: Please also refer to the separate dictated note~for this date of service dictated separately.~Patient seen individually. Discussed the patient with Nursing staff reviewed the chart.~Reviewed interim history and current functioning. Reviewed vital signs,~Labs/ Radiology~and current medications noted below. Continue current treatment with the changes noted in the dictated addendum note Assessment: Vital Signs: Vital Signs Date Time Temp Pulse Resp B/P (MAP) Pulse Ox O2 Delivery O2 Flow Rate FiO2 04/15/18 16:08 97.3 80 18 106/73 (84) 93 Room Air I&O Intake and Output 04/15/18 07:00 Intake Total 800 ml Balance 800 ml Intake Oral 800 ml Labs: Laboratory Tests Test 04/15/18 07:44 04/15/18 11:19 04/15/18 16:33 04/15/18 20:12 Glucose (Fingerstick) 116 mg/dL (70-99) H 214 mg/dL (70-99) H 109 mg/dL (70-99) H 57 mg/dL (70-99) L Test 04/15/18 21:39 Glucose (Fingerstick) 155 mg/dL (70-99) H Current Medications: Meds: Current Medications Lactated Ringer's 1,000 ml @ 100 mls/hr Q10H IV Last administered on at 20:14; Start 04/13/18 at 18:32; Stop 04/14/18 at 04:31; Status DC Acetaminophen (Tylenol) 650 mg PRN Q6HRS PRN PO PAIN / TEMP; Start 04/13/18 at 22:45 Multi-Ingredient Ointment (Analgesic [place]) 1 gila PRN QID PRN TP MUSCLE PAIN; Start 04/13/18 at 22:45 Al Hydroxide/Mg Hydroxide (Mylanta Plus Xs) 15 ml PRN AFTMEALHC PRN PO DYSPEPSIA; Start 04/13/18 at 22:45 Magnesium Hydroxide (Milk Of Magnesia) 2,400 mg PRN QHS PRN PO CONSTIPATION; Start 04/13/18 at 22:45 Bisacodyl (Dulcolax Tab) 5 mg PRN DAILY PRN PO CONSTIPATION; Start 04/13/18 at 23:00 Vitamin D (Vitamin D3) 1,000 unit DAILY PO Last administered on 9/24/18at 09:50 ; Start 04/14/18 at 09:00 Clopidogrel Bisulfate (Plavix) 75 mg DAILY PO Last administered on 04/15/18 09 :48; Start 04/14/18 at 09:00 Insulin Glargine (Lantus) 36 units BID SQ Last administered on 04/15/18at 21:45 ; Start 04/14/18 at 09:00 Insulin Human Lispro (HumaLOG) 32 units TIDWMEALS SQ Last administered on at 12:00; Start 04/14/18 at 08:00 Lisinopril (Prinivil) 10 mg DAILY PO Last administered on 04/15/18 09:49; Start 04/14/18 at 09:00 Amlodipine Besylate (Norvasc) 5 mg DAILY PO Last administered on 04/15/18 09: 48; Start 04/14/18 at 09:00 Aspirin (Aspirin Enteric Coated) 81 mg DAILYWBKFT PO Last administered on at 09:46; Start 04/14/18 at 08:00 Baclofen (Lioresal) 5 mg TID PO ; Start 04/14/18 at 09:00; Stop 04/14/18 at 09: 00; Status DC Buspirone HCl (Buspar) 10 mg TID PO ; Start 04/14/18 at 09:00; Stop 04/14/18 at 09:00; Status DC Cyanocobalamin (Vitamin B-12) 500 mcg DAILY PO Last administered on 04/15/18at 09:50; Start 04/14/18 at 09:00 Finasteride (Proscar) 5 mg DAILY PO Last administered on 04/15/18at 09:49; Start 04/14/18 at 09:00 Polyethylene Glycol (miraLAX) 17 gm DAILY PO Last administered on 04/15/18 09: 48; Start 04/14/18 at 09:00 Trazodone HCl (Desyrel) 50 mg QHS PO ; Start 04/13/18 at 23:00; Stop 04/13/18 at 23:00; Status DC Venlafaxine HCl (Effexor Xr) 112.5 mg DAILY PO ; Start 04/14/18 at 09:00; Stop 04/14/18 at 09:00; Status DC Baclofen (Lioresal) 5 mg TID PO Last administered on 04/15/18at 21:32; Start at 23:00 Baclofen (Lioresal) 5 mg TID PO ; Start 04/13/18 at 23:00; Status UNV Trazodone HCl (Desyrel) 50 mg QHS PO Last administered on 04/15/18at 21:32; Start 04/13/18 at 23:15 Venlafaxine HCl (Effexor Xr) 112.5 mg DAILY PO Last administered on 04/15/18at 09:47; Start 04/14/18 at 09:00; Stop 04/15/18 at 17:23; Status DC Buspirone HCl (Buspar) 10 mg TID PO Last administered on 04/15/18at 21:32; Start 04/13/18 at 23:15 Insulin Human Lispro (HumaLOG) 0-5 UNITS TIDWMEALS SQ Last administered on 04/14at 10:24; Start 04/14/18 at 08:00 Dextrose 12.5 gm PRN Q15MIN PRN IV SEE COMMENTS; Start 04/13/18 at 23:15 Influenza Virus Vaccine (Afluria Trivalent Syringe) 0.5 ml ONCE ONCE VAX IM ; Start 04/14/18 at 09:00; Stop 04/14/18 at 09:01; Status UNV Influenza Virus Vaccine (Afluria Trivalent Syringe) 0.5 ml ONCE ONCE VAX IM Last administered on 04/15/18at 10:52; Start 04/14/18 at 09:00; Stop at 09:01; Status DC Duloxetine HCl (Cymbalta) 30 mg DAILY PO ; Start 04/16/18 at 09:00 Active Scripts Active Reported Humalog (Insulin Lispro) 100 Unit/1 Ml Insuln.pen 2-10 Unit SQ TIDWMEALS Buspirone Hcl 10 Mg Tablet 10 Mg PO TID Venlafaxine Hcl Er (Venlafaxine Hcl) 75 Mg Cap.er.24h 112.5 Mg PO DAILY Trazodone Hcl 50 Mg Tablet 50 Mg PO HS Lantus Solostar (Insulin Glargine,Hum.rec.anlog) 100 Unit/1 Ml Insuln.pen 36 Unit SQ BID Baclofen 10 Mg Tablet 5 Mg PO TID Humalog (Insulin Lispro) 100 Unit/1 Ml Insuln.pen 32 Unit SQ TIDWMEALS Miralax (Polyethylene Glycol 3350) 17 Gm Powd.pack 17 Gm PO DAILY Lisinopril 10 Mg Tablet 10 Mg PO DAILY Finasteride 5 Mg Tablet 5 Mg PO DAILY B-12 (Cyanocobalamin (Vitamin B-12)) 500 Mcg Tablet 500 Mcg PO DAILY Clopidogrel (Clopidogrel Bisulfate) 75 Mg Tablet 75 Mg PO DAILY Vitamin D3 (Cholecalciferol (Vitamin D3)) 1,000 Unit Tablet 1,000 Unit PO DAILY Bisacodyl 5 Mg Tablet.dr 5 Mg PO PRN DAILY PRN Amlodipine Besylate 5 Mg Tablet 5 Mg PO DAILY Aspirin Ec (Aspirin) 81 Mg Tablet.dr 81 Mg PO DAILY I have reviewed the current psychotropics carefully including drug interactions. Risk benefit ratio favors no change other than as noted in my dictated progress note. Diagnosis: Problems: (1) Altered mental status, unspecified ANTHONY MCMAHAN MD Apr 15, 2018 22:43
[2018-04-16 05:40] VITALS: BP 118/73
[2018-04-16] MEDS: BACLOFEN 10 MG TABLET PO SCH ×3 (08:23→20:22)
[2018-04-16] MEDS: amLODIPine BESYLATE 5 MG TABLET PO SCH (08:23)
[2018-04-16] MEDS: CHOLECALCIFEROL (VITAMIN D3) 1,000 UNIT TABLET PO SCH (08:23)
[2018-04-16] MEDS: FINASTERIDE 5 MG TABLET PO SCH (08:24)
[2018-04-16] MEDS: CLOPIDOGREL BISULFATE 75 MG TABLET PO SCH (08:24)
[2018-04-16] MEDS: ASPIRIN ENTERIC COATED 81 MG TABLET.DR. PO SCH (08:24)
[2018-04-16] MEDS: busPIRone 10 MG TABLET. PO SCH ×3 (08:24→20:22)
[2018-04-16] MEDS: POLYETHYLENE GLYCOL 3350 17 GM PACKET. PO SCH (08:24)
[2018-04-16] MEDS: CYANOCOBALAMIN (VITAMIN B-12) 1,000 MCG TABLET. PO SCH (08:24)
[2018-04-16] MEDS: INSULIN GLARGINE 300 UNITS/3 ML INSULN.PEN. SQ SCH ×2 (08:26→20:40)
[2018-04-16] MEDS: INSULIN LISPRO 300 UNITS/3 ML INSULN.PEN. SQ SCH ×6 (08:27→17:00)
[2018-04-16] MEDS: DULoxetine HCL 30 MG CAPSULE.DR PO SCH (08:32)
[2018-04-16] MEDS: LISINOPRIL 10 MG TABLET PO SCH (08:34)
[2018-04-16 15:43] VITALS: BP 100/61
[2018-04-16] MEDS: traZODone 50 MG TABLET. PO SCH (20:22)
--- NOTE | 2018-04-16 20:56 | PDOC ---
Exam Note: Clayton Note: Please also refer to the separate dictated note~for this date of service dictated separately.~Patient seen individually. Discussed the patient with Nursing staff reviewed the chart.~Reviewed interim history and current functioning. Reviewed vital signs,~Labs/ Radiology~and current medications noted below. Continue current treatment with the changes noted in the dictated addendum note Assessment: Vital Signs: Vital Signs Date Time Temp Pulse Resp B/P (MAP) Pulse Ox O2 Delivery O2 Flow Rate FiO2 04/16/18 15:43 97.2 82 18 100/61 (74) 94 Room Air I&O Intake and Output 04/16/18 07:00 Intake Total 360 ml Balance 360 ml Intake Oral 360 ml Labs: Laboratory Tests Test 04/15/18 21:39 04/16/18 07:27 04/16/18 11:24 04/16/18 16:45 Glucose (Fingerstick) 155 mg/dL (70-99) H 167 mg/dL (70-99) H 275 mg/dL (70-99) H 68 mg/dL (70-99) L Test 04/16/18 19:27 04/16/18 20:31 Glucose (Fingerstick) 102 mg/dL (70-99) H 119 mg/dL (70-99) H Current Medications: Meds: Current Medications Lactated Ringer's 1,000 ml @ 100 mls/hr Q10H IV Last administered on at 20:14; Start 04/13/18 at 18:32; Stop 04/14/18 at 04:31; Status DC Acetaminophen (Tylenol) 650 mg PRN Q6HRS PRN PO PAIN / TEMP; Start 04/13/18 at 22:45 Multi-Ingredient Ointment (Analgesic [place]) 1 gila PRN QID PRN TP MUSCLE PAIN; Start 04/13/18 at 22:45 Al Hydroxide/Mg Hydroxide (Mylanta Plus Xs) 15 ml PRN AFTMEALHC PRN PO DYSPEPSIA; Start 04/13/18 at 22:45 Magnesium Hydroxide (Milk Of Magnesia) 2,400 mg PRN QHS PRN PO CONSTIPATION; Start 04/13/18 at 22:45 Bisacodyl (Dulcolax Tab) 5 mg PRN DAILY PRN PO CONSTIPATION; Start 04/13/18 at 23:00 Vitamin D (Vitamin D3) 1,000 unit DAILY PO Last administered on 04/16/18 08:23 ; Start 04/14/18 at 09:00 Clopidogrel Bisulfate (Plavix) 75 mg DAILY PO Last administered on 04/16/18 08 :24; Start 04/14/18 at 09:00 Insulin Glargine (Lantus) 36 units BID SQ Last administered on 04/16/18at 20:40 ; Start 04/14/18 at 09:00 Insulin Human Lispro (HumaLOG) 32 units TIDWMEALS SQ Last administered on 12:02; Start 04/14/18 at 08:00 Lisinopril (Prinivil) 10 mg DAILY PO Last administered on 04/16/18 08:34; Start 04/14/18 at 09:00 Amlodipine Besylate (Norvasc) 5 mg DAILY PO Last administered on 04/16/18 08: 23; Start 04/14/18 at 09:00 Aspirin (Aspirin Enteric Coated) 81 mg DAILYWBKFT PO Last administered on 08:24; Start 04/14/18 at 08:00 Baclofen (Lioresal) 5 mg TID PO ; Start 04/14/18 at 09:00; Stop 04/14/18 at 09: 00; Status DC Buspirone HCl (Buspar) 10 mg TID PO ; Start 04/14/18 at 09:00; Stop 04/14/18 at 09:00; Status DC Cyanocobalamin (Vitamin B-12) 500 mcg DAILY PO Last administered on 04/16/18at 08:24; Start 04/14/18 at 09:00 Finasteride (Proscar) 5 mg DAILY PO Last administered on 04/16/18at 08:24; Start 04/14/18 at 09:00 Polyethylene Glycol (miraLAX) 17 gm DAILY PO Last administered on 04/16/18 08: 24; Start 04/14/18 at 09:00 Trazodone HCl (Desyrel) 50 mg QHS PO ; Start 04/13/18 at 23:00; Stop 04/13/18 at 23:00; Status DC Venlafaxine HCl (Effexor Xr) 112.5 mg DAILY PO ; Start 04/14/18 at 09:00; Stop 04/14/18 at 09:00; Status DC Baclofen (Lioresal) 5 mg TID PO Last administered on 04/16/18at 20:22; Start at 23:00 Baclofen (Lioresal) 5 mg TID PO ; Start 04/13/18 at 23:00; Status UNV Trazodone HCl (Desyrel) 50 mg QHS PO Last administered on 04/16/18at 20:22; Start 04/13/18 at 23:15 Venlafaxine HCl (Effexor Xr) 112.5 mg DAILY PO Last administered on 04/15/18at 09:47; Start 04/14/18 at 09:00; Stop 04/15/18 at 17:23; Status DC Buspirone HCl (Buspar) 10 mg TID PO Last administered on 04/16/18at 20:22; Start 04/13/18 at 23:15 Insulin Human Lispro (HumaLOG) 0-5 UNITS TIDWMEALS SQ Last administered on 04/16at 12:03; Start 04/14/18 at 08:00 Dextrose 12.5 gm PRN Q15MIN PRN IV SEE COMMENTS; Start 04/13/18 at 23:15 Influenza Virus Vaccine (Afluria Trivalent Syringe) 0.5 ml ONCE ONCE VAX IM ; Start 04/14/18 at 09:00; Stop 04/14/18 at 09:01; Status UNV Influenza Virus Vaccine (Afluria Trivalent Syringe) 0.5 ml ONCE ONCE VAX IM Last administered on 04/15/18at 10:52; Start 04/14/18 at 09:00; Stop at 09:01; Status DC Duloxetine HCl (Cymbalta) 30 mg DAILY PO Last administered on 04/16/18at 08:32; Start 04/16/18 at 09:00 Active Scripts Active Reported Humalog (Insulin Lispro) 100 Unit/1 Ml Insuln.pen 2-10 Unit SQ TIDWMEALS Buspirone Hcl 10 Mg Tablet 10 Mg PO TID Venlafaxine Hcl Er (Venlafaxine Hcl) 75 Mg Cap.er.24h 112.5 Mg PO DAILY Trazodone Hcl 50 Mg Tablet 50 Mg PO HS Lantus Solostar (Insulin Glargine,Hum.rec.anlog) 100 Unit/1 Ml Insuln.pen 36 Unit SQ BID Baclofen 10 Mg Tablet 5 Mg PO TID Humalog (Insulin Lispro) 100 Unit/1 Ml Insuln.pen 32 Unit SQ TIDWMEALS Miralax (Polyethylene Glycol 3350) 17 Gm Powd.pack 17 Gm PO DAILY Lisinopril 10 Mg Tablet 10 Mg PO DAILY Finasteride 5 Mg Tablet 5 Mg PO DAILY B-12 (Cyanocobalamin (Vitamin B-12)) 500 Mcg Tablet 500 Mcg PO DAILY Clopidogrel (Clopidogrel Bisulfate) 75 Mg Tablet 75 Mg PO DAILY Vitamin D3 (Cholecalciferol (Vitamin D3)) 1,000 Unit Tablet 1,000 Unit PO DAILY Bisacodyl 5 Mg Tablet. 5 Mg PO PRN DAILY PRN Amlodipine Besylate 5 Mg Tablet 5 Mg PO DAILY Aspirin Ec (Aspirin) 81 Mg Tablet. 81 Mg PO DAILY I have reviewed the current psychotropics carefully including drug interactions. Risk benefit ratio favors no change other than as noted in my dictated progress note. Diagnosis: Problems: (1) Altered mental status, unspecified (2) Depression (3) Impulse control disorder (4) Major neurocognitive disorder, due to vascular disease, with behavioral disturbance, mild (5) Vascular dementia with behavioral disturbance ANTHONY MCMAHAN MD Apr 16, 2018 20:56
--- NOTE | 2018-04-16 22:45 | PN ---
DATE: 04/15/2018 This is a late entry for 04/15/2018 covers elements not covered in my initial note. SUBJECTIVE: I met with the patient in the evening. The patient slept 6-3/4 hours previous night. He is reasonably oriented; otherwise, pleasant. He did have an abdominal ultrasound due to raised liver enzymes. I will defer to Dr. Elizondo/Dr. uLcas to follow up on this. REVIEW OF SYSTEMS: Ambulation impaired, in wheelchair. No CV, , pulmonary, eye, ENT system symptoms on review. MENTAL STATUS EXAM: Reasonably oriented. Speech has some latency, coherent. Abstraction fair, computation impaired, language function intact. He was able to do two steps on serial 7's. No active suicidal or homicidal ideation. Mood appears somewhat dysphoric, anxious. Affect is mood congruent. During the individual visit, we discussed at length about the circumstances prompting admission and the patient threatening his roommate and ways to deal with frustration without resorting to similar behaviors once he returns there. He is quite interactive, apologetic for what he did. LABORATORY DATA: Reviewed. IMPRESSION: Major depressive disorder, recurrent with psychotic features; anxiety disorder, unspecified. PLAN: Change the Effexor to Cymbalta 30 mg a day. BuSpar 10 t.i.d., trazodone 50 at bedtime. Adjust further as clinically indicated. MAN Refugio MCMAHAN MD DR: CHRISTIAN/yudi JOB#: [id number] / [id number]
[2018-04-17 05:35] VITALS: BP 129/76
[2018-04-17] MEDS: BACLOFEN 10 MG TABLET PO SCH ×3 (08:24→19:44)
[2018-04-17] MEDS: amLODIPine BESYLATE 5 MG TABLET PO SCH (08:24)
[2018-04-17] MEDS: DULoxetine HCL 30 MG CAPSULE.DR PO SCH (08:24)
[2018-04-17] MEDS: FINASTERIDE 5 MG TABLET PO SCH (08:24)
[2018-04-17] MEDS: LISINOPRIL 10 MG TABLET PO SCH (08:25)
[2018-04-17] MEDS: CHOLECALCIFEROL (VITAMIN D3) 1,000 UNIT TABLET PO SCH (08:25)
[2018-04-17] MEDS: busPIRone 10 MG TABLET. PO SCH ×3 (08:25→19:50)
[2018-04-17] MEDS: ASPIRIN ENTERIC COATED 81 MG TABLET.DR. PO SCH (08:25)
[2018-04-17] MEDS: CYANOCOBALAMIN (VITAMIN B-12) 1,000 MCG TABLET. PO SCH (08:25)
[2018-04-17] MEDS: POLYETHYLENE GLYCOL 3350 17 GM PACKET. PO SCH (08:26)
[2018-04-17] MEDS: CLOPIDOGREL BISULFATE 75 MG TABLET PO SCH (08:26)
[2018-04-17] MEDS: INSULIN LISPRO 300 UNITS/3 ML INSULN.PEN. SQ SCH ×6 (08:27→17:00)
[2018-04-17] MEDS: INSULIN GLARGINE 300 UNITS/3 ML INSULN.PEN. SQ SCH ×2 (08:30→19:52)
[2018-04-17 16:19] VITALS: BP 96/61
[2018-04-17] MEDS: traZODone 50 MG TABLET. PO SCH (19:50)
--- NOTE | 2018-04-17 20:44 | PDOC ---
Exam Note: Clayton Note: Please also refer to the separate dictated note~for this date of service dictated separately.~Patient seen individually. Discussed the patient with Nursing staff reviewed the chart.~Reviewed interim history and current functioning. Reviewed vital signs,~Labs/ Radiology~and current medications noted below. Continue current treatment with the changes noted in the dictated addendum note Assessment: Vital Signs: Vital Signs Date Time Temp Pulse Resp B/P (MAP) Pulse Ox O2 Delivery O2 Flow Rate FiO2 04/17/18 16:19 97.2 75 17 96/61 (73) 94 04/16/18 15:43 Room Air I&O Intake and Output 04/17/18 07:00 Intake Total 1800 ml Balance 1800 ml Intake Oral 1800 ml # Bowel Movements 1 Labs: Laboratory Tests Test 04/17/18 07:39 04/17/18 11:57 04/17/18 16:52 04/17/18 19:16 Glucose (Fingerstick) 243 mg/dL (70-99) H 232 mg/dL (70-99) H 94 mg/dL (70-99) 165 mg/dL (70-99) H Current Medications: Meds: Current Medications Lactated Ringer's 1,000 ml @ 100 mls/hr Q10H IV Last administered on at 20:14; Start 04/13/18 at 18:32; Stop 04/14/18 at 04:31; Status DC Acetaminophen (Tylenol) 650 mg PRN Q6HRS PRN PO PAIN / TEMP; Start 04/13/18 at 22:45 Multi-Ingredient Ointment (Analgesic [place]) 1 gila PRN QID PRN TP MUSCLE PAIN; Start 04/13/18 at 22:45 Al Hydroxide/Mg Hydroxide (Mylanta Plus Xs) 15 ml PRN AFTMEALHC PRN PO DYSPEPSIA; Start 04/13/18 at 22:45 Magnesium Hydroxide (Milk Of Magnesia) 2,400 mg PRN QHS PRN PO CONSTIPATION; Start 04/13/18 at 22:45 Bisacodyl (Dulcolax Tab) 5 mg PRN DAILY PRN PO CONSTIPATION; Start 04/13/18 at 23:00 Vitamin D (Vitamin D3) 1,000 unit DAILY PO Last administered on 04/17/18at 08:25 ; Start 04/14/18 at 09:00 Clopidogrel Bisulfate (Plavix) 75 mg DAILY PO Last administered on 04/17/18at 08 :26; Start 04/14/18 at 09:00 Insulin Glargine (Lantus) 36 units BID SQ Last administered on 04/17/18at 19:52 ; Start 04/14/18 at 09:00 Insulin Human Lispro (HumaLOG) 32 units TIDWMEALS SQ Last administered on at 12:40; Start 04/14/18 at 08:00 Lisinopril (Prinivil) 10 mg DAILY PO Last administered on 04/17/18at 08:25; Start 04/14/18 at 09:00 Amlodipine Besylate (Norvasc) 5 mg DAILY PO Last administered on 04/17/18at 08: 24; Start 04/14/18 at 09:00 Aspirin (Aspirin Enteric Coated) 81 mg DAILYWBKFT PO Last administered on at 08:25; Start 04/14/18 at 08:00 Baclofen (Lioresal) 5 mg TID PO ; Start 04/14/18 at 09:00; Stop 04/14/18 at 09: 00; Status DC Buspirone HCl (Buspar) 10 mg TID PO ; Start 04/14/18 at 09:00; Stop 04/14/18 at 09:00; Status DC Cyanocobalamin (Vitamin B-12) 500 mcg DAILY PO Last administered on 04/17/18at 08:25; Start 04/14/18 at 09:00 Finasteride (Proscar) 5 mg DAILY PO Last administered on 04/17/18at 08:24; Start 04/14/18 at 09:00 Polyethylene Glycol (miraLAX) 17 gm DAILY PO Last administered on 04/17/18at 08: 26; Start 04/14/18 at 09:00 Trazodone HCl (Desyrel) 50 mg QHS PO ; Start 04/13/18 at 23:00; Stop 04/13/18 at 23:00; Status DC Venlafaxine HCl (Effexor Xr) 112.5 mg DAILY PO ; Start 04/14/18 at 09:00; Stop 04/14/18 at 09:00; Status DC Baclofen (Lioresal) 5 mg TID PO Last administered on 9/26/18at 19:44; Start at 23:00 Baclofen (Lioresal) 5 mg TID PO ; Start 04/13/18 at 23:00; Status UNV Trazodone HCl (Desyrel) 50 mg QHS PO Last administered on 04/17/18at 19:50; Start 04/13/18 at 23:15 Venlafaxine HCl (Effexor Xr) 112.5 mg DAILY PO Last administered on 04/15/18at 09:47; Start 04/14/18 at 09:00; Stop 04/15/18 at 17:23; Status DC Buspirone HCl (Buspar) 10 mg TID PO Last administered on 04/17/18at 19:50; Start 04/13/18 at 23:15 Insulin Human Lispro (HumaLOG) 0-5 UNITS TIDWMEALS SQ Last administered on 04/17at 12:42; Start 04/14/18 at 08:00 Dextrose 12.5 gm PRN Q15MIN PRN IV SEE COMMENTS; Start 04/13/18 at 23:15 Influenza Virus Vaccine (Afluria Trivalent Syringe) 0.5 ml ONCE ONCE VAX IM ; Start 04/14/18 at 09:00; Stop 04/14/18 at 09:01; Status UNV Influenza Virus Vaccine (Afluria Trivalent Syringe) 0.5 ml ONCE ONCE VAX IM Last administered on 04/15/18at 10:52; Start 04/14/18 at 09:00; Stop at 09:01; Status DC Duloxetine HCl (Cymbalta) 30 mg DAILY PO Last administered on 04/17/18at 08:24; Start 04/16/18 at 09:00 Active Scripts Active Reported Humalog (Insulin Lispro) 100 Unit/1 Ml Insuln.pen 2-10 Unit SQ TIDWMEALS Buspirone Hcl 10 Mg Tablet 10 Mg PO TID Venlafaxine Hcl Er (Venlafaxine Hcl) 75 Mg Cap.er.24h 112.5 Mg PO DAILY Trazodone Hcl 50 Mg Tablet 50 Mg PO HS Lantus Solostar (Insulin Glargine,Hum.rec.anlog) 100 Unit/1 Ml Insuln.pen 36 Unit SQ BID Baclofen 10 Mg Tablet 5 Mg PO TID Humalog (Insulin Lispro) 100 Unit/1 Ml Insuln.pen 32 Unit SQ TIDWMEALS Miralax (Polyethylene Glycol 3350) 17 Gm Powd.pack 17 Gm PO DAILY Lisinopril 10 Mg Tablet 10 Mg PO DAILY Finasteride 5 Mg Tablet 5 Mg PO DAILY B-12 (Cyanocobalamin (Vitamin B-12)) 500 Mcg Tablet 500 Mcg PO DAILY Clopidogrel (Clopidogrel Bisulfate) 75 Mg Tablet 75 Mg PO DAILY Vitamin D3 (Cholecalciferol (Vitamin D3)) 1,000 Unit Tablet 1,000 Unit PO DAILY Bisacodyl 5 Mg Tablet.dr 5 Mg PO PRN DAILY PRN Amlodipine Besylate 5 Mg Tablet 5 Mg PO DAILY Aspirin Ec (Aspirin) 81 Mg Tablet.dr 81 Mg PO DAILY I have reviewed the current psychotropics carefully including drug interactions. Risk benefit ratio favors no change other than as noted in my dictated progress note. Diagnosis: Problems: (1) Altered mental status, unspecified (2) Depression (3) Impulse control disorder (4) Major neurocognitive disorder, due to vascular disease, with behavioral disturbance, mild (5) Vascular dementia with behavioral disturbance ANTHONY MCMAHAN MD Apr 17, 2018 20:44
--- NOTE | 2018-04-17 23:14 | PN ---
DATE: 04/16/2018 This is a late entry for 04/16/2018 covers elements not covered in my initial note. SUBJECTIVE: I met with the patient in the evening. Overall, the patient has done reasonably well the previous night. He has been withdrawn. No suicidal ideation, appears calmer, slept 7-1/4 hours. He is reasonably oriented. REVIEW OF SYSTEMS: Ambulation impaired, in wheelchair, needs Kurt lift. No CV, , pulmonary, eye, ENT system symptoms on review. MENTAL STATUS EXAM: Oriented reasonably. Speech has some latency, coherent, met with him in his room at some length. Abstraction fair. Computation able to do two-step serial 7's. Mood and affect somewhat dysphoric, anxious, but improved. No suicidal or homicidal ideation. LABORATORY DATA: Reviewed. IMPRESSION: Unchanged from initial note. PLAN: No change from initial note. MAN Refugio MCMAHAN MD DR: CHRISTIAN/yudi JOB#: [id number] / [id number]
[2018-04-18 05:20] VITALS: BP 104/67
[2018-04-18] MEDS: INSULIN LISPRO 300 UNITS/3 ML INSULN.PEN. SQ SCH ×6 (07:35→17:39)
[2018-04-18] MEDS: FINASTERIDE 5 MG TABLET PO SCH (08:14)
[2018-04-18] MEDS: CYANOCOBALAMIN (VITAMIN B-12) 1,000 MCG TABLET. PO SCH (08:14)
[2018-04-18] MEDS: DULoxetine HCL 30 MG CAPSULE.DR PO SCH (08:14)
[2018-04-18] MEDS: busPIRone 10 MG TABLET. PO SCH ×3 (08:14→19:37)
[2018-04-18] MEDS: CHOLECALCIFEROL (VITAMIN D3) 1,000 UNIT TABLET PO SCH (08:14)
[2018-04-18] MEDS: CLOPIDOGREL BISULFATE 75 MG TABLET PO SCH (08:14)
[2018-04-18] MEDS: ASPIRIN ENTERIC COATED 81 MG TABLET.DR. PO SCH (08:15)
[2018-04-18] MEDS: LISINOPRIL 10 MG TABLET PO SCH (08:15)
[2018-04-18] MEDS: amLODIPine BESYLATE 5 MG TABLET PO SCH (08:15)
[2018-04-18] MEDS: BACLOFEN 10 MG TABLET PO SCH ×3 (08:16→19:36)
[2018-04-18] MEDS: POLYETHYLENE GLYCOL 3350 17 GM PACKET. PO SCH (08:16)
[2018-04-18] MEDS: INSULIN GLARGINE 300 UNITS/3 ML INSULN.PEN. SQ SCH ×2 (08:18→19:42)
[2018-04-18 15:50] VITALS: BP 160/83
[2018-04-18] MEDS: traZODone 50 MG TABLET. PO SCH (19:37)
--- NOTE | 2018-04-18 20:26 | PDOC ---
Exam Note: Clayton Note: Please also refer to the separate dictated note~for this date of service dictated separately.~Patient seen individually. Discussed the patient with Nursing staff reviewed the chart.~Reviewed interim history and current functioning. Reviewed vital signs,~Labs/ Radiology~and current medications noted below. Continue current treatment with the changes noted in the dictated addendum note Assessment: Vital Signs: Vital Signs Date Time Temp Pulse Resp B/P (MAP) Pulse Ox O2 Delivery O2 Flow Rate FiO2 04/18/18 15:50 97.6 74 20 160/83 (108) 94 Room Air I&O Intake and Output 04/18/18 07:00 Intake Total 950 ml Balance 950 ml Intake Oral 950 ml # Bowel Movements 1 Labs: Laboratory Tests Test 04/18/18 07:20 04/18/18 12:23 04/18/18 16:55 04/18/18 19:16 Glucose (Fingerstick) 94 mg/dL (70-99) 232 mg/dL (70-99) H 241 mg/dL (70-99) H 140 mg/dL (70-99) H Current Medications: Meds: Current Medications Lactated Ringer's 1,000 ml @ 100 mls/hr Q10H IV Last administered on at 20:14; Start 04/13/18 at 18:32; Stop 04/14/18 at 04:31; Status DC Acetaminophen (Tylenol) 650 mg PRN Q6HRS PRN PO PAIN / TEMP; Start 04/13/18 at 22:45 Multi-Ingredient Ointment (Analgesic [place]) 1 gila PRN QID PRN TP MUSCLE PAIN; Start 04/13/18 at 22:45 Al Hydroxide/Mg Hydroxide (Mylanta Plus Xs) 15 ml PRN AFTMEALHC PRN PO DYSPEPSIA; Start 04/13/18 at 22:45 Magnesium Hydroxide (Milk Of Magnesia) 2,400 mg PRN QHS PRN PO CONSTIPATION; Start 04/13/18 at 22:45 Bisacodyl (Dulcolax Tab) 5 mg PRN DAILY PRN PO CONSTIPATION; Start 04/13/18 at 23:00 Vitamin D (Vitamin D3) 1,000 unit DAILY PO Last administered on 04/18/18at 08:14 ; Start 04/14/18 at 09:00 Clopidogrel Bisulfate (Plavix) 75 mg DAILY PO Last administered on 04/18/18 08 :14; Start 04/14/18 at 09:00 Insulin Glargine (Lantus) 36 units BID SQ Last administered on 04/18/18 19:42 ; Start 04/14/18 at 09:00 Insulin Human Lispro (HumaLOG) 32 units TIDWMEALS SQ Last administered on at 17:38; Start 04/14/18 at 08:00 Lisinopril (Prinivil) 10 mg DAILY PO Last administered on 04/18/18at 08:15; Start 04/14/18 at 09:00 Amlodipine Besylate (Norvasc) 5 mg DAILY PO Last administered on 04/18/18 08: 15; Start 04/14/18 at 09:00 Aspirin (Aspirin Enteric Coated) 81 mg DAILYWBKFT PO Last administered on at 08:15; Start 04/14/18 at 08:00 Baclofen (Lioresal) 5 mg TID PO ; Start 04/14/18 at 09:00; Stop 04/14/18 at 09: 00; Status DC Buspirone HCl (Buspar) 10 mg TID PO ; Start 04/14/18 at 09:00; Stop 04/14/18 at 09:00; Status DC Cyanocobalamin (Vitamin B-12) 500 mcg DAILY PO Last administered on 04/18/18at 08:14; Start 04/14/18 at 09:00 Finasteride (Proscar) 5 mg DAILY PO Last administered on 04/18/18at 08:14; Start 04/14/18 at 09:00 Polyethylene Glycol (miraLAX) 17 gm DAILY PO Last administered on 04/18/18at 08: 16; Start 04/14/18 at 09:00 Trazodone HCl (Desyrel) 50 mg QHS PO ; Start 04/13/18 at 23:00; Stop 04/13/18 at 23:00; Status DC Venlafaxine HCl (Effexor Xr) 112.5 mg DAILY PO ; Start 04/14/18 at 09:00; Stop 04/14/18 at 09:00; Status DC Baclofen (Lioresal) 5 mg TID PO Last administered on 04/18/18at 19:36; Start at 23:00 Baclofen (Lioresal) 5 mg TID PO ; Start 04/13/18 at 23:00; Status UNV Trazodone HCl (Desyrel) 50 mg QHS PO Last administered on 04/18/18at 19:37; Start 04/13/18 at 23:15 Venlafaxine HCl (Effexor Xr) 112.5 mg DAILY PO Last administered on 04/15/18at 09:47; Start 04/14/18 at 09:00; Stop 04/15/18 at 17:23; Status DC Buspirone HCl (Buspar) 10 mg TID PO Last administered on 04/18/18at 19:37; Start 04/13/18 at 23:15 Insulin Human Lispro (HumaLOG) 0-5 UNITS TIDWMEALS SQ Last administered on 04/18at 17:39; Start 04/14/18 at 08:00 Dextrose 12.5 gm PRN Q15MIN PRN IV SEE COMMENTS; Start 04/13/18 at 23:15 Influenza Virus Vaccine (Afluria Trivalent Syringe) 0.5 ml ONCE ONCE VAX IM ; Start 04/14/18 at 09:00; Stop 04/14/18 at 09:01; Status UNV Influenza Virus Vaccine (Afluria Trivalent Syringe) 0.5 ml ONCE ONCE VAX IM Last administered on 04/15/18at 10:52; Start 04/14/18 at 09:00; Stop at 09:01; Status DC Duloxetine HCl (Cymbalta) 30 mg DAILY PO Last administered on 04/18/18at 08:14; Start 04/16/18 at 09:00 Active Scripts Active Reported Humalog (Insulin Lispro) 100 Unit/1 Ml Insuln.pen 2-10 Unit SQ TIDWMEALS Buspirone Hcl 10 Mg Tablet 10 Mg PO TID Venlafaxine Hcl Er (Venlafaxine Hcl) 75 Mg Cap.er.24h 112.5 Mg PO DAILY Trazodone Hcl 50 Mg Tablet 50 Mg PO HS Lantus Solostar (Insulin Glargine,Hum.rec.anlog) 100 Unit/1 Ml Insuln.pen 36 Unit SQ BID Baclofen 10 Mg Tablet 5 Mg PO TID Humalog (Insulin Lispro) 100 Unit/1 Ml Insuln.pen 32 Unit SQ TIDWMEALS Miralax (Polyethylene Glycol 3350) 17 Gm Powd.pack 17 Gm PO DAILY Lisinopril 10 Mg Tablet 10 Mg PO DAILY Finasteride 5 Mg Tablet 5 Mg PO DAILY B-12 (Cyanocobalamin (Vitamin B-12)) 500 Mcg Tablet 500 Mcg PO DAILY Clopidogrel (Clopidogrel Bisulfate) 75 Mg Tablet 75 Mg PO DAILY Vitamin D3 (Cholecalciferol (Vitamin D3)) 1,000 Unit Tablet 1,000 Unit PO DAILY Bisacodyl 5 Mg Tablet. 5 Mg PO PRN DAILY PRN Amlodipine Besylate 5 Mg Tablet 5 Mg PO DAILY Aspirin Ec (Aspirin) 81 Mg Tablet.dr 81 Mg PO DAILY I have reviewed the current psychotropics carefully including drug interactions. Risk benefit ratio favors no change other than as noted in my dictated progress note. Diagnosis: Problems: (1) Altered mental status, unspecified (2) Depression (3) Impulse control disorder (4) Major neurocognitive disorder, due to vascular disease, with behavioral disturbance, mild (5) Vascular dementia with behavioral disturbance ANTHONY MCMAHAN MD Apr 18, 2018 20:26
[2018-04-19 05:49] VITALS: BP 90/51
[2018-04-19] MEDS: INSULIN LISPRO 300 UNITS/3 ML INSULN.PEN. SQ SCH ×6 (08:00→17:04)
[2018-04-19] MEDS: LISINOPRIL 10 MG TABLET PO SCH (08:06)
[2018-04-19] MEDS: CLOPIDOGREL BISULFATE 75 MG TABLET PO SCH (08:06)
[2018-04-19] MEDS: BACLOFEN 10 MG TABLET PO SCH ×3 (08:07→19:36)
[2018-04-19] MEDS: amLODIPine BESYLATE 5 MG TABLET PO SCH (08:07)
[2018-04-19] MEDS: DULoxetine HCL 30 MG CAPSULE.DR PO SCH ×2 (08:07→19:47)
[2018-04-19] MEDS: FINASTERIDE 5 MG TABLET PO SCH (08:07)
[2018-04-19] MEDS: busPIRone 10 MG TABLET. PO SCH ×3 (08:07→19:36)
[2018-04-19] MEDS: ASPIRIN ENTERIC COATED 81 MG TABLET.DR. PO SCH (08:08)
[2018-04-19] MEDS: CYANOCOBALAMIN (VITAMIN B-12) 1,000 MCG TABLET. PO SCH (08:08)
[2018-04-19] MEDS: CHOLECALCIFEROL (VITAMIN D3) 1,000 UNIT TABLET PO SCH (08:08)
[2018-04-19] MEDS: POLYETHYLENE GLYCOL 3350 17 GM PACKET. PO SCH (08:08)
[2018-04-19] MEDS: INSULIN GLARGINE 300 UNITS/3 ML INSULN.PEN. SQ SCH ×2 (08:11→19:38)
[2018-04-19 16:03] VITALS: BP 166/83
[2018-04-19] MEDS: traZODone 50 MG TABLET. PO SCH (19:35)
--- NOTE | 2018-04-19 20:45 | PDOC ---
Exam Note: Clayton Note: Please also refer to the separate dictated note~for this date of service dictated separately.~Patient seen individually. Discussed the patient with Nursing staff reviewed the chart.~Reviewed interim history and current functioning. Reviewed vital signs,~Labs/ Radiology~and current medications noted below. Continue current treatment with the changes noted in the dictated addendum note Assessment: Vital Signs: Vital Signs Date Time Temp Pulse Resp B/P (MAP) Pulse Ox O2 Delivery O2 Flow Rate FiO2 04/19/18 16:03 97.1 71 18 166/83 (110) 96 Room Air I&O Intake and Output 04/19/18 07:00 Intake Total 840 ml Balance 840 ml Intake Oral 840 ml Labs: Laboratory Tests Test 04/19/18 07:05 04/19/18 11:23 04/19/18 16:34 Glucose (Fingerstick) 97 mg/dL (70-99) 183 mg/dL (70-99) H 174 mg/dL (70-99) H Current Medications: Meds: Current Medications Lactated Ringer's 1,000 ml @ 100 mls/hr Q10H IV Last administered on at 20:14; Start 04/13/18 at 18:32; Stop 04/14/18 at 04:31; Status DC Acetaminophen (Tylenol) 650 mg PRN Q6HRS PRN PO PAIN / TEMP; Start 04/13/18 at 22:45 Multi-Ingredient Ointment (Analgesic [place]) 1 gila PRN QID PRN TP MUSCLE PAIN; Start 04/13/18 at 22:45 Al Hydroxide/Mg Hydroxide (Mylanta Plus Xs) 15 ml PRN AFTMEALHC PRN PO DYSPEPSIA; Start 04/13/18 at 22:45 Magnesium Hydroxide (Milk Of Magnesia) 2,400 mg PRN QHS PRN PO CONSTIPATION; Start 04/13/18 at 22:45 Bisacodyl (Dulcolax Tab) 5 mg PRN DAILY PRN PO CONSTIPATION; Start 04/13/18 at 23:00 Vitamin D (Vitamin D3) 1,000 unit DAILY PO Last administered on 04/19/18at 08:08 ; Start 04/14/18 at 09:00 Clopidogrel Bisulfate (Plavix) 75 mg DAILY PO Last administered on 04/19/18at 08 :06; Start 04/14/18 at 09:00 Insulin Glargine (Lantus) 36 units BID SQ Last administered on 04/19/18at 19:38 ; Start 04/14/18 at 09:00 Insulin Human Lispro (HumaLOG) 32 units TIDWMEALS SQ Last administered on at 17:03; Start 04/14/18 at 08:00 Lisinopril (Prinivil) 10 mg DAILY PO Last administered on 04/19/18at 08:06; Start 04/14/18 at 09:00 Amlodipine Besylate (Norvasc) 5 mg DAILY PO Last administered on 04/19/18at 08: 07; Start 04/14/18 at 09:00 Aspirin (Aspirin Enteric Coated) 81 mg DAILYWBKFT PO Last administered on at 08:08; Start 04/14/18 at 08:00 Baclofen (Lioresal) 5 mg TID PO ; Start 04/14/18 at 09:00; Stop 04/14/18 at 09: 00; Status DC Buspirone HCl (Buspar) 10 mg TID PO ; Start 04/14/18 at 09:00; Stop 04/14/18 at 09:00; Status DC Cyanocobalamin (Vitamin B-12) 500 mcg DAILY PO Last administered on 04/19/18at 08:08; Start 04/14/18 at 09:00 Finasteride (Proscar) 5 mg DAILY PO Last administered on 04/19/18at 08:07; Start 04/14/18 at 09:00 Polyethylene Glycol (miraLAX) 17 gm DAILY PO Last administered on 04/19/18at 08: 08; Start 04/14/18 at 09:00 Trazodone HCl (Desyrel) 50 mg QHS PO ; Start 04/13/18 at 23:00; Stop 04/13/18 at 23:00; Status DC Venlafaxine HCl (Effexor Xr) 112.5 mg DAILY PO ; Start 04/14/18 at 09:00; Stop 04/14/18 at 09:00; Status DC Baclofen (Lioresal) 5 mg TID PO Last administered on 04/19/18at 19:36; Start at 23:00 Baclofen (Lioresal) 5 mg TID PO ; Start 04/13/18 at 23:00; Status UNV Trazodone HCl (Desyrel) 50 mg QHS PO Last administered on 04/19/18at 19:35; Start 04/13/18 at 23:15 Venlafaxine HCl (Effexor Xr) 112.5 mg DAILY PO Last administered on 04/15/18at 09:47; Start 04/14/18 at 09:00; Stop 04/15/18 at 17:23; Status DC Buspirone HCl (Buspar) 10 mg TID PO Last administered on 04/19/18at 19:36; Start 04/13/18 at 23:15 Insulin Human Lispro (HumaLOG) 0-5 UNITS TIDWMEALS SQ Last administered on 04/19at 17:04; Start 04/14/18 at 08:00 Dextrose 12.5 gm PRN Q15MIN PRN IV SEE COMMENTS; Start 04/13/18 at 23:15 Influenza Virus Vaccine (Afluria Trivalent Syringe) 0.5 ml ONCE ONCE VAX IM ; Start 04/14/18 at 09:00; Stop 04/14/18 at 09:01; Status UNV Influenza Virus Vaccine (Afluria Trivalent Syringe) 0.5 ml ONCE ONCE VAX IM Last administered on 04/15/18at 10:52; Start 04/14/18 at 09:00; Stop at 09:01; Status DC Duloxetine HCl (Cymbalta) 30 mg DAILY PO Last administered on 04/19/18at 08:07; Start 04/16/18 at 09:00; Stop 04/19/18 at 16:51; Status DC Duloxetine HCl (Cymbalta) 30 mg QHS PO Last administered on 04/19/18at 19:47; Start 04/19/18 at 21:00 Active Scripts Active Reported Humalog (Insulin Lispro) 100 Unit/1 Ml Insuln.pen 2-10 Unit SQ TIDWMEALS Buspirone Hcl 10 Mg Tablet 10 Mg PO TID Venlafaxine Hcl Er (Venlafaxine Hcl) 75 Mg Cap.er.24h 112.5 Mg PO DAILY Trazodone Hcl 50 Mg Tablet 50 Mg PO HS Lantus Solostar (Insulin Glargine,Hum.rec.anlog) 100 Unit/1 Ml Insuln.pen 36 Unit SQ BID Baclofen 10 Mg Tablet 5 Mg PO TID Humalog (Insulin Lispro) 100 Unit/1 Ml Insuln.pen 32 Unit SQ TIDWMEALS Miralax (Polyethylene Glycol 3350) 17 Gm Powd.pack 17 Gm PO DAILY Lisinopril 10 Mg Tablet 10 Mg PO DAILY Finasteride 5 Mg Tablet 5 Mg PO DAILY B-12 (Cyanocobalamin (Vitamin B-12)) 500 Mcg Tablet 500 Mcg PO DAILY Clopidogrel (Clopidogrel Bisulfate) 75 Mg Tablet 75 Mg PO DAILY Vitamin D3 (Cholecalciferol (Vitamin D3)) 1,000 Unit Tablet 1,000 Unit PO DAILY Bisacodyl 5 Mg Tablet. 5 Mg PO PRN DAILY PRN Amlodipine Besylate 5 Mg Tablet 5 Mg PO DAILY Aspirin Ec (Aspirin) 81 Mg Tablet.dr 81 Mg PO DAILY I have reviewed the current psychotropics carefully including drug interactions. Risk benefit ratio favors no change other than as noted in my dictated progress note. Diagnosis: Problems: (1) Altered mental status, unspecified (2) Depression (3) Impulse control disorder (4) Major neurocognitive disorder, due to vascular disease, with behavioral disturbance, mild (5) Vascular dementia with behavioral disturbance ANTHONY MCMAHAN MD Apr 19, 2018 20:45
--- NOTE | 2018-04-19 21:24 | PN ---
DATE: 04/17/2018 This is a late entry for 04/17/2018 covers elements not covered in my initial note. SUBJECTIVE: I met with the patient in the evening. The patient slept 8-1/4 hours previous night. He has been drowsy in the morning, withdrawn to his room, but reasonably oriented. REVIEW OF SYSTEMS: Ambulation impaired, in wheelchair. No CV, , pulmonary, eye, ENT system symptoms on review. MENTAL STATUS EXAM: The patient is reasonably oriented. Speech has some latency, coherent, abstraction fair, computation impaired, language function intact, attention span short. Mood and affect somewhat withdrawn. LABORATORY DATA: Reviewed. IMPRESSION: Major depressive disorder with history of psychotic features; cognitive disorder, unspecified. PLAN: No change from initial note. Continue Cymbalta 30 mg a day, BuSpar 10 t.i.d., trazodone 50 mg at bedtime. ANTHONY MCMAHAN MD DR: CHRISTIAN/yudi JOB#: [id number] / [id number]
--- NOTE | 2018-04-19 23:50 | PN ---
DATE: 04/18/2018 This is a late entry for 04/18/2018 covers elements not covered in my initial note. SUBJECTIVE: I met with the patient at length the evening of 04/18/2018, staffed at a treatment team meeting with the entire team in the morning. The patient slept 6-1/2 hours. 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 He has been withdrawn, but very animated, talking about all of the above with me individually. He was irritable previous night, sleeps in the morning. REVIEW OF SYSTEMS: Ambulation impaired, in wheelchair. No CV, , pulmonary, eye, ENT system symptoms on review. MENTAL STATUS EXAM: Oriented to himself and situation. Speech is coherent, abstraction fair, computation impaired, language function intact. Mood and affect still somewhat withdrawn, but showing improvement. LABORATORY DATA: Reviewed. IMPRESSION: Major depressive disorder, recurrent; anxiety disorder, unspecified; cognitive disorder, unspecified. PLAN: Continue psychotropics from initial note and Cymbalta was started in place of Effexor. ANTHONY MCMAHAN MD DR: CHRISTIAN/yudi JOB#: [id number] / [id number]
[2018-04-20 05:51] VITALS: BP 116/77
[2018-04-20] MEDS: INSULIN LISPRO 300 UNITS/3 ML INSULN.PEN. SQ SCH ×6 (08:00→17:37)
[2018-04-20] MEDS: BACLOFEN 10 MG TABLET PO SCH ×3 (08:01→19:18)
[2018-04-20] MEDS: CHOLECALCIFEROL (VITAMIN D3) 1,000 UNIT TABLET PO SCH (08:02)
[2018-04-20] MEDS: ASPIRIN ENTERIC COATED 81 MG TABLET.DR. PO SCH (08:02)
[2018-04-20] MEDS: FINASTERIDE 5 MG TABLET PO SCH (08:02)
[2018-04-20] MEDS: busPIRone 10 MG TABLET. PO SCH ×3 (08:02→19:18)
[2018-04-20] MEDS: CYANOCOBALAMIN (VITAMIN B-12) 1,000 MCG TABLET. PO SCH (08:03)
[2018-04-20] MEDS: LISINOPRIL 10 MG TABLET PO SCH (08:03)
[2018-04-20] MEDS: POLYETHYLENE GLYCOL 3350 17 GM PACKET. PO SCH (08:04)
[2018-04-20] MEDS: amLODIPine BESYLATE 5 MG TABLET PO SCH (08:04)
[2018-04-20] MEDS: INSULIN GLARGINE 300 UNITS/3 ML INSULN.PEN. SQ SCH ×2 (08:13→20:22)
[2018-04-20] MEDS: CLOPIDOGREL BISULFATE 75 MG TABLET PO SCH (08:15)
[2018-04-20 15:47] VITALS: BP 140/65
[2018-04-20] MEDS: DULoxetine HCL 30 MG CAPSULE.DR PO SCH (19:16)
[2018-04-20] MEDS: traZODone 50 MG TABLET. PO SCH (19:16)
--- NOTE | 2018-04-20 23:02 | PDOC ---
Exam Note: Clayton Note: Please also refer to the separate dictated note~for this date of service dictated separately.~Patient seen individually. Discussed the patient with Nursing staff reviewed the chart.~Reviewed interim history and current functioning. Reviewed vital signs,~Labs/ Radiology~and current medications noted below. Continue current treatment with the changes noted in the dictated addendum note Assessment: Vital Signs: Vital Signs Date Time Temp Pulse Resp B/P (MAP) Pulse Ox O2 Delivery O2 Flow Rate FiO2 04/20/18 15:47 98.3 70 18 140/65 (90) 96 04/20/18 05:51 Room Air I&O Intake and Output 04/20/18 07:00 Intake Total 1440 ml Balance 1440 ml Intake Oral 1440 ml # Bowel Movements 1 Labs: Laboratory Tests Test 04/20/18 07:10 04/20/18 11:34 04/20/18 16:54 04/20/18 19:48 Glucose (Fingerstick) 149 mg/dL (70-99) H 295 mg/dL (70-99) H 143 mg/dL (70-99) H 147 mg/dL (70-99) H Current Medications: Meds: Current Medications Lactated Ringer's 1,000 ml @ 100 mls/hr Q10H IV Last administered on at 20:14; Start 04/13/18 at 18:32; Stop 04/14/18 at 04:31; Status DC Acetaminophen (Tylenol) 650 mg PRN Q6HRS PRN PO PAIN / TEMP; Start 04/13/18 at 22:45 Multi-Ingredient Ointment (Analgesic [place]) 1 gila PRN QID PRN TP MUSCLE PAIN; Start 04/13/18 at 22:45 Al Hydroxide/Mg Hydroxide (Mylanta Plus Xs) 15 ml PRN AFTMEALHC PRN PO DYSPEPSIA; Start 04/13/18 at 22:45 Magnesium Hydroxide (Milk Of Magnesia) 2,400 mg PRN QHS PRN PO CONSTIPATION; Start 04/13/18 at 22:45 Bisacodyl (Dulcolax Tab) 5 mg PRN DAILY PRN PO CONSTIPATION; Start 04/13/18 at 23:00 Vitamin D (Vitamin D3) 1,000 unit DAILY PO Last administered on 04/20/18at 08:02 ; Start 04/14/18 at 09:00 Clopidogrel Bisulfate (Plavix) 75 mg DAILY PO Last administered on 04/20/18at 08 :15; Start 04/14/18 at 09:00 Insulin Glargine (Lantus) 36 units BID SQ Last administered on 04/20/18at 20:22 ; Start 04/14/18 at 09:00 Insulin Human Lispro (HumaLOG) 32 units TIDWMEALS SQ Last administered on at 17:37; Start 04/14/18 at 08:00 Lisinopril (Prinivil) 10 mg DAILY PO Last administered on 04/20/18at 08:03; Start 04/14/18 at 09:00 Amlodipine Besylate (Norvasc) 5 mg DAILY PO Last administered on 04/20/18at 08: 04; Start 04/14/18 at 09:00 Aspirin (Aspirin Enteric Coated) 81 mg DAILYWBKFT PO Last administered on at 08:02; Start 04/14/18 at 08:00 Baclofen (Lioresal) 5 mg TID PO ; Start 04/14/18 at 09:00; Stop 04/14/18 at 09: 00; Status DC Buspirone HCl (Buspar) 10 mg TID PO ; Start 04/14/18 at 09:00; Stop 04/14/18 at 09:00; Status DC Cyanocobalamin (Vitamin B-12) 500 mcg DAILY PO Last administered on 04/20/18at 08:03; Start 04/14/18 at 09:00 Finasteride (Proscar) 5 mg DAILY PO Last administered on 04/20/18at 08:02; Start 04/14/18 at 09:00 Polyethylene Glycol (miraLAX) 17 gm DAILY PO Last administered on 04/20/18at 08: 04; Start 04/14/18 at 09:00 Trazodone HCl (Desyrel) 50 mg QHS PO ; Start 04/13/18 at 23:00; Stop 04/13/18 at 23:00; Status DC Venlafaxine HCl (Effexor Xr) 112.5 mg DAILY PO ; Start 04/14/18 at 09:00; Stop 04/14/18 at 09:00; Status DC Baclofen (Lioresal) 5 mg TID PO Last administered on 04/20/18 19:18; Start at 23:00 Baclofen (Lioresal) 5 mg TID PO ; Start 04/13/18 at 23:00; Status UNV Trazodone HCl (Desyrel) 50 mg QHS PO Last administered on 04/20/18at 19:16; Start 04/13/18 at 23:15 Venlafaxine HCl (Effexor Xr) 112.5 mg DAILY PO Last administered on 04/15/18at 09:47; Start 04/14/18 at 09:00; Stop 04/15/18 at 17:23; Status DC Buspirone HCl (Buspar) 10 mg TID PO Last administered on 04/20/18 19:18; Start 04/13/18 at 23:15 Insulin Human Lispro (HumaLOG) 0-5 UNITS TIDWMEALS SQ Last administered on 04/20at 12:07; Start 04/14/18 at 08:00 Dextrose 12.5 gm PRN Q15MIN PRN IV SEE COMMENTS; Start 04/13/18 at 23:15 Influenza Virus Vaccine (Afluria Trivalent Syringe) 0.5 ml ONCE ONCE VAX IM ; Start 04/14/18 at 09:00; Stop 04/14/18 at 09:01; Status UNV Influenza Virus Vaccine (Afluria Trivalent Syringe) 0.5 ml ONCE ONCE VAX IM Last administered on 04/15/18at 10:52; Start 04/14/18 at 09:00; Stop at 09:01; Status DC Duloxetine HCl (Cymbalta) 30 mg DAILY PO Last administered on 04/19/18at 08:07; Start 04/16/18 at 09:00; Stop 04/19/18 at 16:51; Status DC Duloxetine HCl (Cymbalta) 30 mg QHS PO Last administered on 04/20/18at 19:16; Start 04/19/18 at 21:00 Active Scripts Active Reported Humalog (Insulin Lispro) 100 Unit/1 Ml Insuln.pen 2-10 Unit SQ TIDWMEALS Buspirone Hcl 10 Mg Tablet 10 Mg PO TID Venlafaxine Hcl Er (Venlafaxine Hcl) 75 Mg Cap.er.24h 112.5 Mg PO DAILY Trazodone Hcl 50 Mg Tablet 50 Mg PO HS Lantus Solostar (Insulin Glargine,Hum.rec.anlog) 100 Unit/1 Ml Insuln.pen 36 Unit SQ BID Baclofen 10 Mg Tablet 5 Mg PO TID Humalog (Insulin Lispro) 100 Unit/1 Ml Insuln.pen 32 Unit SQ TIDWMEALS Miralax (Polyethylene Glycol 3350) 17 Gm Powd.pack 17 Gm PO DAILY Lisinopril 10 Mg Tablet 10 Mg PO DAILY Finasteride 5 Mg Tablet 5 Mg PO DAILY B-12 (Cyanocobalamin (Vitamin B-12)) 500 Mcg Tablet 500 Mcg PO DAILY Clopidogrel (Clopidogrel Bisulfate) 75 Mg Tablet 75 Mg PO DAILY Vitamin D3 (Cholecalciferol (Vitamin D3)) 1,000 Unit Tablet 1,000 Unit PO DAILY Bisacodyl 5 Mg Tablet. 5 Mg PO PRN DAILY PRN Amlodipine Besylate 5 Mg Tablet 5 Mg PO DAILY Aspirin Ec (Aspirin) 81 Mg Tablet. 81 Mg PO DAILY I have reviewed the current psychotropics carefully including drug interactions. Risk benefit ratio favors no change other than as noted in my dictated progress note. Diagnosis: Problems: (1) Altered mental status, unspecified (2) Depression (3) Impulse control disorder (4) Major neurocognitive disorder, due to vascular disease, with behavioral disturbance, mild (5) Vascular dementia with behavioral disturbance ANTHONY MCMAHAN MD Apr 20, 2018 23:02
[2018-04-21 05:44] VITALS: BP 101/58
[2018-04-21] MEDS: POLYETHYLENE GLYCOL 3350 17 GM PACKET. PO SCH (07:42)
[2018-04-21] MEDS: BACLOFEN 10 MG TABLET PO SCH ×3 (07:42→19:36)
[2018-04-21] MEDS: busPIRone 10 MG TABLET. PO SCH ×3 (07:42→19:35)
[2018-04-21] MEDS: CYANOCOBALAMIN (VITAMIN B-12) 1,000 MCG TABLET. PO SCH (07:43)
[2018-04-21] MEDS: CHOLECALCIFEROL (VITAMIN D3) 1,000 UNIT TABLET PO SCH (07:43)
[2018-04-21] MEDS: ASPIRIN ENTERIC COATED 81 MG TABLET.DR. PO SCH (07:43)
[2018-04-21] MEDS: CLOPIDOGREL BISULFATE 75 MG TABLET PO SCH (07:44)
[2018-04-21] MEDS: amLODIPine BESYLATE 5 MG TABLET PO SCH (07:44)
[2018-04-21] MEDS: FINASTERIDE 5 MG TABLET PO SCH (07:44)
[2018-04-21] MEDS: LISINOPRIL 10 MG TABLET PO SCH (07:44)
[2018-04-21] MEDS: INSULIN LISPRO 300 UNITS/3 ML INSULN.PEN. SQ SCH ×6 (07:45→17:26)
[2018-04-21] MEDS: INSULIN GLARGINE 300 UNITS/3 ML INSULN.PEN. SQ SCH ×2 (08:19→19:49)
[2018-04-21 09:48] LABS: BASO % 1 % (0-3); EOS # 0.2 x10^3/uL (0.0-0.7); EOS % 2 % (0-3); HEMATOCRIT 37.5 % (39.0-53.0); HEMOGLOBIN 12.4 g/dL (13.0-17.5); LYMPH % 45 % (24-48); MEAN CORPUSCULAR HEMOGLOBIN 32 pg (25-35); MEAN CORPUSCULAR HGB CONC 33 g/dL (31-37); MEAN CORPUSCULAR VOLUME 96 fL (79-100); MONO # 0.6 x10^3/uL (0.0-1.1); MONO % 8 % (0-9); NEUT # 2.9 x10^3uL (1.8-7.7); NEUT % 44 % (31-73); PLATELET COUNT 300 x10^3/uL (140-400); RED CELL DISTRIBUTION WIDTH 14.7 % (11.5-14.5); WHITE BLOOD COUNT 6.7 x10^3/uL (4.0-11.0)
[2018-04-21 09:55] LABS: ALBUMIN 3.2 g/dL (3.4-5.0); ALBUMIN/GLOBULIN RATIO 0.9 (1.0-1.7); CREATININE 1.8 mg/dL (0.7-1.3); GFR 37.2; POTASSIUM 5.6 mmol/L (3.5-5.1); TOTAL BILIRUBIN 0.3 mg/dL (0.2-1.0); TOTAL PROTEIN 6.6 g/dL (6.4-8.2)
[2018-04-21 15:12] VITALS: BP 143/74
--- NOTE | 2018-04-21 15:38 | PN ---
DATE: 04/19/2018 This late entry, 04/19/2018, covers elements not covered in my initial note. SUBJECTIVE: I met with the patient in the evening. The patient slept 8-1/4 hours previous night. He has been more social, quite verbal, at times somewhat hyperverbal. He was in bed after breakfast, somewhat sedated during the day and we will change the Cymbalta from the morning to the evening to help with this. REVIEW OF SYSTEMS: Ambulation impaired, in wheelchair. No CV, , pulmonary, eye, ENT system symptoms on review. MENTAL STATUS EXAM: The patient is reasonably oriented. Speech coherent, rapid at times. Abstraction fair, computation impaired, language function intact. Mood and affect, less labile and no suicidal or homicidal ideation expressed by the patient. LABORATORY DATA: Reviewed. IMPRESSION: Major depressive disorder, in partial remission; anxiety disorder, unspecified; cognitive disorder, unspecified. PLAN: Continue psychotropics from initial note. Change Cymbalta to bedtime for now. ANTHONY MCMAHAN MD DR: CHRISTIAN/yudi JOB#: [id number] / [id number]
[2018-04-21] MEDS: DULoxetine HCL 30 MG CAPSULE.DR PO SCH (19:35)
[2018-04-21] MEDS: traZODone 50 MG TABLET. PO SCH (19:36)
--- NOTE | 2018-04-21 20:02 | PDOC ---
Exam Note: [place] Note: Please also refer to the separate dictated note~for this date of service dictated separately.~Patient seen individually. Discussed the patient with Nursing staff reviewed the chart.~Reviewed interim history and current functioning. Reviewed vital signs,~Labs/ Radiology~and current medications noted below. Continue current treatment with the changes noted in the dictated addendum note Assessment: Vital Signs: Vital Signs Date Time Temp Pulse Resp B/P (MAP) Pulse Ox O2 Delivery O2 Flow Rate FiO2 04/21/18 15:12 97.2 78 18 143/74 (97) 95 04/21/18 05:44 Room Air I&O Intake and Output 04/21/18 07:00 Intake Total 2480 ml Balance 2480 ml Intake Oral 2480 ml # Bowel Movements 1 Labs: Laboratory Tests Test 04/21/18 07:05 04/21/18 09:15 04/21/18 11:18 04/21/18 16:45 Glucose (Fingerstick) 111 mg/dL (70-99) H 246 mg/dL (70-99) H 190 mg/dL (70-99) H White Blood Count 6.7 x10^3/uL (4.0-11.0) Red Blood Count 3.90 x10^6/uL (4.30-5.70) L Hemoglobin 12.4 g/dL (13.0-17.5) L Hematocrit 37.5 % (39.0-53.0) L Mean Corpuscular Volume 96 fL (79-100) Mean Corpuscular Hemoglobin 32 pg (25-35) Mean Corpuscular Hemoglobin Concent 33 g/dL (31-37) Red Cell Distribution Width 14.7 % (11.5-14.5) H Platelet Count 300 x10^3/uL (140-400) Neutrophils (%) (Auto) 44 % (31-73) Lymphocytes (%) (Auto) 45 % (24-48) Monocytes (%) (Auto) 8 % (0-9) Eosinophils (%) (Auto) 2 % (0-3) Basophils (%) (Auto) 1 % (0-3) Neutrophils # (Auto) 2.9 x10^3uL (1.8-7.7) Lymphocytes # (Auto) 3.0 x10^3/uL (1.0-4.8) Monocytes # (Auto) 0.6 x10^3/uL (0.0-1.1) Eosinophils # (Auto) 0.2 x10^3/uL (0.0-0.7) Basophils # (Auto) 0.0 x10^3/uL (0.0-0.2) Sodium Level 138 mmol/L (136-145) Potassium Level 5.6 mmol/L (3.5-5.1) H Chloride Level 103 mmol/L (98-107) Carbon Dioxide Level 29 mmol/L (21-32) Anion Gap 6 (6-14) Blood Urea Nitrogen 22 mg/dL (8-26) Creatinine 1.8 mg/dL (0.7-1.3) H Estimated GFR (Cockcroft-Gault) 37.2 BUN/Creatinine Ratio 12 (6-20) Glucose Level 299 mg/dL (70-99) H Calcium Level 9.0 mg/dL (8.5-10.1) Total Bilirubin 0.3 mg/dL (0.2-1.0) Aspartate Amino Transferase (AST) 26 U/L (15-37) Alanine Aminotransferase (ALT) 56 U/L (16-63) Alkaline Phosphatase 110 U/L (46-116) Total Protein 6.6 g/dL (6.4-8.2) Albumin 3.2 g/dL (3.4-5.0) L Albumin/Globulin Ratio 0.9 (1.0-1.7) L Current Medications: Meds: Current Medications Lactated Ringer's 1,000 ml @ 100 mls/hr Q10H IV Last administered on at 20:14; Start 04/13/18 at 18:32; Stop 04/14/18 at 04:31; Status DC Acetaminophen (Tylenol) 650 mg PRN Q6HRS PRN PO PAIN / TEMP; Start 04/13/18 at 22:45 Multi-Ingredient Ointment (Analgesic [place]) 1 gila PRN QID PRN TP MUSCLE PAIN; Start 04/13/18 at 22:45 Al Hydroxide/Mg Hydroxide (Mylanta Plus Xs) 15 ml PRN AFTMEALHC PRN PO DYSPEPSIA; Start 04/13/18 at 22:45 Magnesium Hydroxide (Milk Of Magnesia) 2,400 mg PRN QHS PRN PO CONSTIPATION; Start 04/13/18 at 22:45 Bisacodyl (Dulcolax Tab) 5 mg PRN DAILY PRN PO CONSTIPATION; Start 04/13/18 at 23:00 Vitamin D (Vitamin D3) 1,000 unit DAILY PO Last administered on 04/21/18 07:43 ; Start 04/14/18 at 09:00 Clopidogrel Bisulfate (Plavix) 75 mg DAILY PO Last administered on 04/21/18 07 :44; Start 04/14/18 at 09:00 Insulin Glargine (Lantus) 36 units BID SQ Last administered on 04/21/18 19:49 ; Start 04/14/18 at 09:00 Insulin Human Lispro (HumaLOG) 32 units TIDWMEALS SQ Last administered on 17:25; Start 04/14/18 at 08:00 Lisinopril (Prinivil) 10 mg DAILY PO Last administered on 04/21/18 07:44; Start 04/14/18 at 09:00 Amlodipine Besylate (Norvasc) 5 mg DAILY PO Last administered on 04/20/18at 08: 04; Start 04/14/18 at 09:00 Aspirin (Aspirin Enteric Coated) 81 mg DAILYWBKFT PO Last administered on at 07:43; Start 04/14/18 at 08:00 Baclofen (Lioresal) 5 mg TID PO ; Start 04/14/18 at 09:00; Stop 04/14/18 at 09: 00; Status DC Buspirone HCl (Buspar) 10 mg TID PO ; Start 04/14/18 at 09:00; Stop 04/14/18 at 09:00; Status DC Cyanocobalamin (Vitamin B-12) 500 mcg DAILY PO Last administered on 04/21/18 07:43; Start 04/14/18 at 09:00 Finasteride (Proscar) 5 mg DAILY PO Last administered on 04/21/18 07:44; Start 04/14/18 at 09:00 Polyethylene Glycol (miraLAX) 17 gm DAILY PO Last administered on 04/21/18 07: 42; Start 04/14/18 at 09:00 Trazodone HCl (Desyrel) 50 mg QHS PO ; Start 04/13/18 at 23:00; Stop 04/13/18 at 23:00; Status DC Venlafaxine HCl (Effexor Xr) 112.5 mg DAILY PO ; Start 04/14/18 at 09:00; Stop 04/14/18 at 09:00; Status DC Baclofen (Lioresal) 5 mg TID PO Last administered on 04/21/18at 19:36; Start at 23:00 Baclofen (Lioresal) 5 mg TID PO ; Start 04/13/18 at 23:00; Status UNV Trazodone HCl (Desyrel) 50 mg QHS PO Last administered on 04/21/18at 19:36; Start 04/13/18 at 23:15 Venlafaxine HCl (Effexor Xr) 112.5 mg DAILY PO Last administered on 04/15/18at 09:47; Start 04/14/18 at 09:00; Stop 04/15/18 at 17:23; Status DC Buspirone HCl (Buspar) 10 mg TID PO Last administered on 04/21/18at 19:35; Start 04/13/18 at 23:15 Insulin Human Lispro (HumaLOG) 0-5 UNITS TIDWMEALS SQ Last administered on 04/21at 17:26; Start 04/14/18 at 08:00 Dextrose 12.5 gm PRN Q15MIN PRN IV SEE COMMENTS; Start 04/13/18 at 23:15 Influenza Virus Vaccine (Afluria Trivalent Syringe) 0.5 ml ONCE ONCE VAX IM ; Start 04/14/18 at 09:00; Stop 04/14/18 at 09:01; Status UNV Influenza Virus Vaccine (Afluria Trivalent [id number] Syringe) 0.5 ml ONCE ONCE VAX IM Last administered on 04/15/18at 10:52; Start 04/14/18 at 09:00; Stop at 09:01; Status DC Duloxetine HCl (Cymbalta) 30 mg DAILY PO Last administered on 04/19/18at 08:07; Start 04/16/18 at 09:00; Stop 04/19/18 at 16:51; Status DC Duloxetine HCl (Cymbalta) 30 mg QHS PO Last administered on 04/21/18at 19:35; Start 04/19/18 at 21:00 Active Scripts Active Reported Humalog (Insulin Lispro) 100 Unit/1 Ml Insuln.pen 2-10 Unit SQ TIDWMEALS Buspirone Hcl 10 Mg Tablet 10 Mg PO TID Venlafaxine Hcl Er (Venlafaxine Hcl) 75 Mg Cap.er.24h 112.5 Mg PO DAILY Trazodone Hcl 50 Mg Tablet 50 Mg PO HS Lantus Solostar (Insulin Glargine,Hum.rec.anlog) 100 Unit/1 Ml Insuln.pen 36 Unit SQ BID Baclofen 10 Mg Tablet 5 Mg PO TID Humalog (Insulin Lispro) 100 Unit/1 Ml Insuln.pen 32 Unit SQ TIDWMEALS Miralax (Polyethylene Glycol 3350) 17 Gm Powd.pack 17 Gm PO DAILY Lisinopril 10 Mg Tablet 10 Mg PO DAILY Finasteride 5 Mg Tablet 5 Mg PO DAILY B-12 (Cyanocobalamin (Vitamin B-12)) 500 Mcg Tablet 500 Mcg PO DAILY Clopidogrel (Clopidogrel Bisulfate) 75 Mg Tablet 75 Mg PO DAILY Vitamin D3 (Cholecalciferol (Vitamin D3)) 1,000 Unit Tablet 1,000 Unit PO DAILY Bisacodyl 5 Mg Tablet. 5 Mg PO PRN DAILY PRN Amlodipine Besylate 5 Mg Tablet 5 Mg PO DAILY Aspirin Ec (Aspirin) 81 Mg Tablet.dr 81 Mg PO DAILY I have reviewed the current psychotropics carefully including drug interactions. Risk benefit ratio favors no change other than as noted in my dictated progress note. Diagnosis: Problems: (1) Altered mental status, unspecified (2) Depression (3) Impulse control disorder (4) Major neurocognitive disorder, due to vascular disease, with behavioral disturbance, mild (5) Vascular dementia with behavioral disturbance ANTHONY MCMAHAN MD Apr 21, 2018 20:02
[2018-04-22 05:28] VITALS: BP 139/65
[2018-04-22] MEDS: ASPIRIN ENTERIC COATED 81 MG TABLET.DR. PO SCH (07:29)
[2018-04-22] MEDS: CHOLECALCIFEROL (VITAMIN D3) 1,000 UNIT TABLET PO SCH (07:29)
[2018-04-22] MEDS: CLOPIDOGREL BISULFATE 75 MG TABLET PO SCH (07:29)
[2018-04-22] MEDS: POLYETHYLENE GLYCOL 3350 17 GM PACKET. PO SCH (07:30)
[2018-04-22] MEDS: amLODIPine BESYLATE 5 MG TABLET PO SCH (07:30)
[2018-04-22] MEDS: FINASTERIDE 5 MG TABLET PO SCH (07:30)
[2018-04-22] MEDS: busPIRone 10 MG TABLET. PO SCH ×3 (07:31→20:28)
[2018-04-22] MEDS: CYANOCOBALAMIN (VITAMIN B-12) 1,000 MCG TABLET. PO SCH (07:31)
[2018-04-22] MEDS: LISINOPRIL 10 MG TABLET PO SCH (07:31)
[2018-04-22] MEDS: BACLOFEN 10 MG TABLET PO SCH ×3 (07:32→20:28)
[2018-04-22] MEDS: INSULIN LISPRO 300 UNITS/3 ML INSULN.PEN. SQ SCH ×6 (08:00→17:28)
[2018-04-22] MEDS: INSULIN GLARGINE 300 UNITS/3 ML INSULN.PEN. SQ SCH ×2 (08:36→22:42)
[2018-04-22 16:10] VITALS: BP 123/76
--- NOTE | 2018-04-22 20:17 | PDOC ---
Exam Note: Clayton Note: Please also refer to the separate dictated note~for this date of service dictated separately.~Patient seen individually. Discussed the patient with Nursing staff reviewed the chart.~Reviewed interim history and current functioning. Reviewed vital signs,~Labs/ Radiology~and current medications noted below. Continue current treatment with the changes noted in the dictated addendum note Assessment: Vital Signs: Vital Signs Date Time Temp Pulse Resp B/P (MAP) Pulse Ox O2 Delivery O2 Flow Rate FiO2 04/22/18 16:10 97.8 89 18 123/76 (92) 96 04/21/18 05:44 Room Air I&O Intake and Output 04/22/18 07:00 Intake Total 1080 ml Balance 1080 ml Intake Oral 1080 ml # Voids 1 # Bowel Movements 1 Labs: Laboratory Tests Test 04/22/18 07:27 04/22/18 12:06 04/22/18 17:09 Glucose (Fingerstick) 94 mg/dL (70-99) 278 mg/dL (70-99) H 190 mg/dL (70-99) H Current Medications: Meds: Current Medications Lactated Ringer's 1,000 ml @ 100 mls/hr Q10H IV Last administered on at 20:14; Start 04/13/18 at 18:32; Stop 04/14/18 at 04:31; Status DC Acetaminophen (Tylenol) 650 mg PRN Q6HRS PRN PO PAIN / TEMP Last administered on 04/22/18at 09:50; Start 04/13/18 at 22:45 Multi-Ingredient Ointment (Analgesic [place]) 1 gila PRN QID PRN TP MUSCLE PAIN; Start 04/13/18 at 22:45 Al Hydroxide/Mg Hydroxide (Mylanta Plus Xs) 15 ml PRN AFTMEALHC PRN PO DYSPEPSIA; Start 04/13/18 at 22:45 Magnesium Hydroxide (Milk Of Magnesia) 2,400 mg PRN QHS PRN PO CONSTIPATION; Start 04/13/18 at 22:45 Bisacodyl (Dulcolax Tab) 5 mg PRN DAILY PRN PO CONSTIPATION; Start 04/13/18 at 23:00 Vitamin D (Vitamin D3) 1,000 unit DAILY PO Last administered on 04/22/18at 07:29 ; Start 04/14/18 at 09:00 Clopidogrel Bisulfate (Plavix) 75 mg DAILY PO Last administered on 04/22/18 07 :29; Start 04/14/18 at 09:00 Insulin Glargine (Lantus) 36 units BID SQ Last administered on 04/22/18at 08:36 ; Start 04/14/18 at 09:00 Insulin Human Lispro (HumaLOG) 32 units TIDWMEALS SQ Last administered on 17:27; Start 04/14/18 at 08:00 Lisinopril (Prinivil) 10 mg DAILY PO Last administered on 04/22/18at 07:31; Start 04/14/18 at 09:00 Amlodipine Besylate (Norvasc) 5 mg DAILY PO Last administered on 04/22/18 07: 30; Start 04/14/18 at 09:00 Aspirin (Aspirin Enteric Coated) 81 mg DAILYWBKFT PO Last administered on at 07:29; Start 04/14/18 at 08:00 Baclofen (Lioresal) 5 mg TID PO ; Start 04/14/18 at 09:00; Stop 04/14/18 at 09: 00; Status DC Buspirone HCl (Buspar) 10 mg TID PO ; Start 04/14/18 at 09:00; Stop 04/14/18 at 09:00; Status DC Cyanocobalamin (Vitamin B-12) 500 mcg DAILY PO Last administered on 04/22/18at 07:31; Start 04/14/18 at 09:00 Finasteride (Proscar) 5 mg DAILY PO Last administered on 04/22/18at 07:30; Start 04/14/18 at 09:00 Polyethylene Glycol (miraLAX) 17 gm DAILY PO Last administered on 04/22/18at 07: 30; Start 04/14/18 at 09:00 Trazodone HCl (Desyrel) 50 mg QHS PO ; Start 04/13/18 at 23:00; Stop 04/13/18 at 23:00; Status DC Venlafaxine HCl (Effexor Xr) 112.5 mg DAILY PO ; Start 04/14/18 at 09:00; Stop 04/14/18 at 09:00; Status DC Baclofen (Lioresal) 5 mg TID PO Last administered on 04/22/18at 13:43; Start at 23:00 Baclofen (Lioresal) 5 mg TID PO ; Start 04/13/18 at 23:00; Status UNV Trazodone HCl (Desyrel) 50 mg QHS PO Last administered on 04/21/18at 19:36; Start 04/13/18 at 23:15 Venlafaxine HCl (Effexor Xr) 112.5 mg DAILY PO Last administered on 04/15/18at 09:47; Start 04/14/18 at 09:00; Stop 04/15/18 at 17:23; Status DC Buspirone HCl (Buspar) 10 mg TID PO Last administered on 04/22/18at 13:44; Start 04/13/18 at 23:15 Insulin Human Lispro (HumaLOG) 0-5 UNITS TIDWMEALS SQ Last administered on 04/22at 17:28; Start 04/14/18 at 08:00 Dextrose 12.5 gm PRN Q15MIN PRN IV SEE COMMENTS; Start 04/13/18 at 23:15 Influenza Virus Vaccine (Afluria Trivalent Syringe) 0.5 ml ONCE ONCE VAX IM ; Start 04/14/18 at 09:00; Stop 04/14/18 at 09:01; Status UNV Influenza Virus Vaccine ([employer] Trivalent Syringe) 0.5 ml ONCE ONCE VAX IM Last administered on 04/15/18at 10:52; Start 04/14/18 at 09:00; Stop at 09:01; Status DC Duloxetine HCl (Cymbalta) 30 mg DAILY PO Last administered on 04/19/18at 08:07; Start 04/16/18 at 09:00; Stop 04/19/18 at 16:51; Status DC Duloxetine HCl (Cymbalta) 30 mg QHS PO Last administered on 04/21/18at 19:35; Start 04/19/18 at 21:00 Active Scripts Active Reported Humalog (Insulin Lispro) 100 Unit/1 Ml Insuln.pen 2-10 Unit SQ TIDWMEALS Buspirone Hcl 10 Mg Tablet 10 Mg PO TID Venlafaxine Hcl Er (Venlafaxine Hcl) 75 Mg Cap.er.24h 112.5 Mg PO DAILY Trazodone Hcl 50 Mg Tablet 50 Mg PO HS Lantus Solostar (Insulin Glargine,Hum.rec.anlog) 100 Unit/1 Ml Insuln.pen 36 Unit SQ BID Baclofen 10 Mg Tablet 5 Mg PO TID Humalog (Insulin Lispro) 100 Unit/1 Ml Insuln.pen 32 Unit SQ TIDWMEALS Miralax (Polyethylene Glycol 3350) 17 Gm Powd.pack 17 Gm PO DAILY Lisinopril 10 Mg Tablet 10 Mg PO DAILY Finasteride 5 Mg Tablet 5 Mg PO DAILY B-12 (Cyanocobalamin (Vitamin B-12)) 500 Mcg Tablet 500 Mcg PO DAILY Clopidogrel (Clopidogrel Bisulfate) 75 Mg Tablet 75 Mg PO DAILY Vitamin D3 (Cholecalciferol (Vitamin D3)) 1,000 Unit Tablet 1,000 Unit PO DAILY Bisacodyl 5 Mg Tablet. 5 Mg PO PRN DAILY PRN Amlodipine Besylate 5 Mg Tablet 5 Mg PO DAILY Aspirin Ec (Aspirin) 81 Mg Tablet. 81 Mg PO DAILY I have reviewed the current psychotropics carefully including drug interactions. Risk benefit ratio favors no change other than as noted in my dictated progress note. Diagnosis: Problems: (1) Altered mental status, unspecified (2) Depression (3) Impulse control disorder (4) Major neurocognitive disorder, due to vascular disease, with behavioral disturbance, mild (5) Vascular dementia with behavioral disturbance ANTHONY MCMAHAN MD Apr 22, 2018 20:17
[2018-04-22] MEDS: DULoxetine HCL 30 MG CAPSULE.DR PO SCH (20:28)
[2018-04-22] MEDS: traZODone 50 MG TABLET. PO SCH (20:28)
--- NOTE | 2018-04-22 21:12 | PN ---
DATE: 04/20/2018 PSYCHIATRIC PROGRESS NOTE This late entry 04/20/2018 covers elements not covered in my initial note. SUBJECTIVE: I met with the patient in the evening. The patient slept 10 hours previous night. He is much more social, very talkative, cooperative, somewhat hyperverbal at times, but not aggressive. REVIEW OF SYSTEMS: Ambulation impaired, in wheelchair. No CV, , pulmonary, eye system symptoms on review. MENTAL STATUS EXAM: The patient is reasonably oriented. Speech coherent, very verbal. Abstraction fair. Computation able to do one step on serial 7's. No suicidal or homicidal ideation. Attention span short. Language function intact. LABORATORY DATA: Reviewed. IMPRESSION: Major depressive disorder in partial remission, rule out bipolar 1 disorder, mixed. Rest unchanged including mild cognitive impairment. PLAN: No change from a psychiatric standpoint, maintain BuSpar 10 t.i.d., Cymbalta 30 mg a day, trazodone 50 mg at bedtime. MAN Refugio MCMAHAN MD DR: CHRISTIAN/yudi JOB#: [id number] / [id number]
--- NOTE | 2018-04-22 21:17 | PN ---
DATE: 04/21/2018 PSYCHIATRIC PROGRESS NOTE This late entry 04/21/2018 covers elements not covered in my initial note. SUBJECTIVE: I met with the patient in the evening. The patient slept 7 hours previous night. He has been irritable around breakfast time. He is wanting to call the son-in-law, wanting to get the bar started, wants to take a flight from here for 2 hours, get a job. Somewhat grandiose. REVIEW OF SYSTEMS: Ambulation impaired, in wheelchair. No CV, , pulmonary, eye system symptoms on review. MENTAL STATUS EXAM: Reasonably oriented. Speech coherent, rapid at times. Abstraction fair, computation impaired, language function intact, attention span short. Mood and affect remain somewhat grandiose. LABORATORY DATA: Reviewed. IMPRESSION: Unchanged from initial note. PLAN: Continue psychotropics from initial note. Start Seroquel 25 mg at bedtime as a mood stabilizer. May need to adjust this or use Depakote as a mood stabilizer. MAN Refugio MCMAHAN MD DR: CHRISTIAN/yudi JOB#: [id number] / [id number]
[2018-04-23] MEDS ORDERED: METH29OI TP (03:38)
[2018-04-23] MEDS ORDERED: ACET325T9 PO (03:39)
[2018-04-23] MEDS ORDERED: DULO30CA2 PO (03:40)
[2018-04-23] MEDS ORDERED: MAG30ORA2 PO (03:41)
[2018-04-23] MEDS ORDERED: MAGN400O7 PO (03:42)
[2018-04-23 05:31] VITALS: BP 113/69
[2018-04-23] MEDS: INSULIN LISPRO 300 UNITS/3 ML INSULN.PEN. SQ SCH ×4 (08:00→12:30)
[2018-04-23] MEDS: FINASTERIDE 5 MG TABLET PO SCH (09:23)
[2018-04-23] MEDS: busPIRone 10 MG TABLET. PO SCH ×2 (09:24→13:54)
[2018-04-23] MEDS: BACLOFEN 10 MG TABLET PO SCH ×2 (09:24→13:54)
[2018-04-23] MEDS: LISINOPRIL 10 MG TABLET PO SCH (09:24)
[2018-04-23] MEDS: CHOLECALCIFEROL (VITAMIN D3) 1,000 UNIT TABLET PO SCH (09:24)
[2018-04-23] MEDS: ASPIRIN ENTERIC COATED 81 MG TABLET.DR. PO SCH (09:24)
[2018-04-23] MEDS: CYANOCOBALAMIN (VITAMIN B-12) 1,000 MCG TABLET. PO SCH (09:24)
[2018-04-23] MEDS: CLOPIDOGREL BISULFATE 75 MG TABLET PO SCH (09:24)
[2018-04-23] MEDS: amLODIPine BESYLATE 5 MG TABLET PO SCH (09:27)
[2018-04-23] MEDS: POLYETHYLENE GLYCOL 3350 17 GM PACKET. PO SCH (09:27)
[2018-04-23] MEDS: INSULIN GLARGINE 300 UNITS/3 ML INSULN.PEN. SQ SCH (09:30)
[2018-04-23 15:53] VITALS: BP 110/66
--- NOTE | 2018-04-23 18:18 | PDOC ---
Exam Note: Clayton Note: Please also refer to the separate dictated note~for this date of service dictated separately.~Patient seen individually. Discussed the patient with Nursing staff reviewed the chart.~Reviewed interim history and current functioning. Reviewed vital signs,~Labs/ Radiology~and current medications noted below. Continue current treatment with the changes noted in the dictated addendum note Assessment: Vital Signs: Vital Signs Date Time Temp Pulse Resp B/P (MAP) Pulse Ox O2 Delivery O2 Flow Rate FiO2 04/23/18 15:53 97.5 79 20 110/66 (81) 98 Room Air I&O Intake and Output 04/23/18 07:00 Intake Total 920 ml Balance 920 ml Intake Oral 920 ml # Voids 1 # Bowel Movements 1 Labs: Laboratory Tests Test 04/22/18 22:18 04/23/18 07:41 04/23/18 12:03 04/23/18 16:35 Glucose (Fingerstick) 137 mg/dL (70-99) H 106 mg/dL (70-99) H 286 mg/dL (70-99) H 160 mg/dL (70-99) H Current Medications: Meds: Current Medications Lactated Ringer's 1,000 ml @ 100 mls/hr Q10H IV Last administered on at 20:14; Start 04/13/18 at 18:32; Stop 04/14/18 at 04:31; Status DC Acetaminophen (Tylenol) 650 mg PRN Q6HRS PRN PO PAIN / TEMP Last administered on 04/22/18at 09:50; Start 04/13/18 at 22:45 Multi-Ingredient Ointment (Analgesic Magnolia) 1 sarah PRN QID PRN TP MUSCLE PAIN; Start 04/13/18 at 22:45 Al Hydroxide/Mg Hydroxide (Mylanta Plus Xs) 15 ml PRN AFTMEALHC PRN PO DYSPEPSIA; Start 04/13/18 at 22:45 Magnesium Hydroxide (Milk Of Magnesia) 2,400 mg PRN QHS PRN PO CONSTIPATION; Start 04/13/18 at 22:45 Bisacodyl (Dulcolax Tab) 5 mg PRN DAILY PRN PO CONSTIPATION; Start 04/13/18 at 23:00 Vitamin D (Vitamin D3) 1,000 unit DAILY PO Last administered on 04/23/18at 09:24 ; Start 04/14/18 at 09:00 Clopidogrel Bisulfate (Plavix) 75 mg DAILY PO Last administered on 04/23/18 09 :24; Start 04/14/18 at 09:00 Insulin Glargine (Lantus) 36 units BID SQ Last administered on 04/23/18 09:30 ; Start 04/14/18 at 09:00 Insulin Human Lispro (HumaLOG) 32 units TIDWMEALS SQ Last administered on 12:30; Start 04/14/18 at 08:00 Lisinopril (Prinivil) 10 mg DAILY PO Last administered on 04/23/18 09:24; Start 04/14/18 at 09:00 Amlodipine Besylate (Norvasc) 5 mg DAILY PO Last administered on 04/23/18 09: 27; Start 04/14/18 at 09:00 Aspirin (Aspirin Enteric Coated) 81 mg DAILYWBKFT PO Last administered on 09:24; Start 04/14/18 at 08:00 Baclofen (Lioresal) 5 mg TID PO ; Start 04/14/18 at 09:00; Stop 04/14/18 at 09: 00; Status DC Buspirone HCl (Buspar) 10 mg TID PO ; Start 04/14/18 at 09:00; Stop 04/14/18 at 09:00; Status DC Cyanocobalamin (Vitamin B-12) 500 mcg DAILY PO Last administered on 04/23/18 09:24; Start 04/14/18 at 09:00 Finasteride (Proscar) 5 mg DAILY PO Last administered on 04/23/18 09:23; Start 04/14/18 at 09:00 Polyethylene Glycol (miraLAX) 17 gm DAILY PO Last administered on 04/23/18 09: 27; Start 04/14/18 at 09:00 Trazodone HCl (Desyrel) 50 mg QHS PO ; Start 04/13/18 at 23:00; Stop 04/13/18 at 23:00; Status DC Venlafaxine HCl (Effexor Xr) 112.5 mg DAILY PO ; Start 04/14/18 at 09:00; Stop 04/14/18 at 09:00; Status DC Baclofen (Lioresal) 5 mg TID PO Last administered on 04/23/18at 13:54; Start at 23:00 Baclofen (Lioresal) 5 mg TID PO ; Start 04/13/18 at 23:00; Status UNV Trazodone HCl (Desyrel) 50 mg QHS PO Last administered on 04/22/18at 20:28; Start 04/13/18 at 23:15 Venlafaxine HCl (Effexor Xr) 112.5 mg DAILY PO Last administered on 04/15/18at 09:47; Start 04/14/18 at 09:00; Stop 04/15/18 at 17:23; Status DC Buspirone HCl (Buspar) 10 mg TID PO Last administered on 04/23/18at 13:54; Start 04/13/18 at 23:15 Insulin Human Lispro (HumaLOG) 0-5 UNITS TIDWMEALS SQ Last administered on 04/23at 12:30; Start 04/14/18 at 08:00 Dextrose 12.5 gm PRN Q15MIN PRN IV SEE COMMENTS; Start 04/13/18 at 23:15 Influenza Virus Vaccine (Afluria Trivalent Syringe) 0.5 ml ONCE ONCE VAX IM ; Start 04/14/18 at 09:00; Stop 04/14/18 at 09:01; Status UNV Influenza Virus Vaccine (Afluria Trivalent Syringe) 0.5 ml ONCE ONCE VAX IM Last administered on 04/15/18at 10:52; Start 04/14/18 at 09:00; Stop at 09:01; Status DC Duloxetine HCl (Cymbalta) 30 mg DAILY PO Last administered on 04/19/18at 08:07; Start 04/16/18 at 09:00; Stop 04/19/18 at 16:51; Status DC Duloxetine HCl (Cymbalta) 30 mg QHS PO Last administered on 04/22/18at 20:28; Start 04/19/18 at 21:00 Active Scripts Active Reported Milk Of Magnesia (Magnesium Hydroxide) 400 Mg/5 Ml Oral.susp 2,400 Mg PO PRN QHS PRN Mag-Al Plus Xs Suspension (Mag Hydrox/Al Hydrox/Simeth) 30 Ml Oral.susp 15 Ml PO PRN AFTMEALHC PRN Cymbalta (Duloxetine Hcl) 30 Mg Capsule.dr 30 Mg PO QHS Tylenol (Acetaminophen) 325 Mg Tablet 650 Mg PO PRN Q6HRS PRN Analgesic Magnolia (Methyl Salicylate/Menthol) 28 Gm Oint...g. 1 Sarah TP PRN QID PRN Humalog (Insulin Lispro) 100 Unit/1 Ml Insuln.pen 0-5 Unit SQ TIDWMEALS Buspirone Hcl 10 Mg Tablet 10 Mg PO TID Trazodone Hcl 50 Mg Tablet 50 Mg PO HS Lantus Solostar (Insulin Glargine,Hum.rec.anlog) 100 Unit/1 Ml Insuln.pen 36 Unit SQ BID Baclofen 10 Mg Tablet 5 Mg PO TID Humalog (Insulin Lispro) 100 Unit/1 Ml Insuln.pen 32 Unit SQ TIDWMEALS Miralax (Polyethylene Glycol 3350) 17 Gm Powd.pack 17 Gm PO DAILY Lisinopril 10 Mg Tablet 10 Mg PO DAILY Finasteride 5 Mg Tablet 5 Mg PO DAILY B-12 (Cyanocobalamin (Vitamin B-12)) 500 Mcg Tablet 500 Mcg PO DAILY Clopidogrel (Clopidogrel Bisulfate) 75 Mg Tablet 75 Mg PO DAILY Vitamin D3 (Cholecalciferol (Vitamin D3)) 1,000 Unit Tablet 1,000 Unit PO DAILY Bisacodyl 5 Mg Tablet.dr 5 Mg PO PRN DAILY PRN Amlodipine Besylate 5 Mg Tablet 5 Mg PO DAILY Aspirin Ec (Aspirin) 81 Mg Tablet. 81 Mg PO DAILY I have reviewed the current psychotropics carefully including drug interactions. Risk benefit ratio favors no change other than as noted in my dictated progress note. Diagnosis: Problems: (1) Vascular dementia with behavioral disturbance (2) Major neurocognitive disorder, due to vascular disease, with behavioral disturbance, mild (3) Impulse control disorder (4) Depression (5) Altered mental status, unspecified ANTHONY MCMAHAN MD Apr 23, 2018 18:18
--- NOTE | 2018-04-23 21:20 | PN ---
DATE: 04/22/2018 This is a late entry for 04/22/2018 covers elements not covered in my initial note. SUBJECTIVE: I met with the patient in the evening. The patient slept 7-3/4 hours previous night. He has been up during the day, quite hyperverbal at times. Daughter is insistent on discharging him back to [place] on 04/23/2018. I returned a call from Dr. Annelise Ruiz and we have been playing phone tags since I have left a message back for her on 2 occasions after she has returned my previous call. I will attempt to try to connect with her again. REVIEW OF SYSTEMS: Ambulation impaired, in wheelchair. No CV, , pulmonary, eye, ENT system symptoms on review. MENTAL STATUS EXAM: Oriented to himself and situation. Speech coherent, rapid at times, hyperverbal at times. Abstraction fair, computation impaired, language function intact, attention span short. Mood and affect somewhat labile. LABORATORY DATA: Reviewed. IMPRESSION: Major depressive disorder, recurrent; anxiety disorder, unspecified; impulse control disorder. PLAN: Seroquel was added 25 mg at bedtime to augment Cymbalta 30 mg a day. Maintain trazodone along with BuSpar 10 mg t.i.d. We will let social service staff discussed with daughter in [facility] about appropriate disposition plans. MAN Refugio MCMAHAN MD DR: CHRISTIAN/yudi JOB#: [id number] / [id number]
--- NOTE | 2018-04-24 21:00 | PDOC ---
Exam Note: Clayton Note: Late entry for date of service April 23 2018. Please also refer to the separate dictated note~for this date of service dictated separately.~Patient seen individually. Discussed the patient with Nursing staff reviewed the chart.~ Reviewed interim history and current functioning. Reviewed vital signs,~Labs/ Radiology~and current medications noted below. Continue current treatment with the changes noted in the dictated addendum note Assessment: Vital Signs: VS - Last 72 Hours, by Label Date Time Temp Pulse Resp B/P (MAP) Pulse Ox O2 Delivery O2 Flow Rate FiO2 04/23/18 15:53 97.5 79 20 110/66 (81) 98 Room Air 04/23/18 09:27 66 113/69 04/23/18 09:24 66 113/69 04/23/18 05:31 97.4 66 20 113/69 (84) 100 04/22/18 16:10 97.8 89 18 123/76 (92) 96 04/22/18 07:31 74 139/65 04/22/18 07:30 74 139/65 04/22/18 05:28 97.0 74 20 139/65 (89) 97 Vital Signs Date Time Temp Pulse Resp B/P (MAP) Pulse Ox O2 Delivery O2 Flow Rate FiO2 04/23/18 15:53 97.5 79 20 110/66 (81) 98 Room Air I&O Intake and Output 04/24/18 07:00 Intake Total 480 ml Balance 480 ml Intake Oral 480 ml Current Medications: Meds: Current Medications Lactated Ringer's 1,000 ml @ 100 mls/hr Q10H IV Last administered on at 20:14; Start 04/13/18 at 18:32; Stop 04/14/18 at 04:31; Status DC Acetaminophen (Tylenol) 650 mg PRN Q6HRS PRN PO PAIN / TEMP Last administered on 04/22/18at 09:50; Start 04/13/18 at 22:45; Stop 04/23/18 at 18:30; Status DC Multi-Ingredient Ointment (Analgesic Hickory) 1 sarah PRN QID PRN TP MUSCLE PAIN; Start 04/13/18 at 22:45; Stop 04/23/18 at 18:30; Status DC Al Hydroxide/Mg Hydroxide (Mylanta Plus Xs) 15 ml PRN AFTMEALHC PRN PO DYSPEPSIA; Start 04/13/18 at 22:45; Stop 04/23/18 at 18:30; Status DC Magnesium Hydroxide (Milk Of Magnesia) 2,400 mg PRN QHS PRN PO CONSTIPATION; Start 04/13/18 at 22:45; Stop 04/23/18 at 18:30; Status DC Bisacodyl (Dulcolax Tab) 5 mg PRN DAILY PRN PO CONSTIPATION; Start 04/13/18 at 23:00; Stop 04/23/18 at 18:30; Status DC Vitamin D (Vitamin D3) 1,000 unit DAILY PO Last administered on 04/23/18 09:24 ; Start 04/14/18 at 09:00; Stop 04/23/18 at 18:30; Status DC Clopidogrel Bisulfate (Plavix) 75 mg DAILY PO Last administered on 04/23/18at 09 :24; Start 04/14/18 at 09:00; Stop 04/23/18 at 18:30; Status DC Insulin Glargine (Lantus) 36 units BID SQ Last administered on 04/23/18at 09:30 ; Start 04/14/18 at 09:00; Stop 04/23/18 at 18:30; Status DC Insulin Human Lispro (HumaLOG) 32 units TIDWMEALS SQ Last administered on at 12:30; Start 04/14/18 at 08:00; Stop 04/23/18 at 18:30; Status DC Lisinopril (Prinivil) 10 mg DAILY PO Last administered on 04/23/18at 09:24; Start 04/14/18 at 09:00; Stop 04/23/18 at 18:30; Status DC Amlodipine Besylate (Norvasc) 5 mg DAILY PO Last administered on 04/23/18at 09: 27; Start 04/14/18 at 09:00; Stop 04/23/18 at 18:30; Status DC Aspirin (Aspirin Enteric Coated) 81 mg DAILYWBKFT PO Last administered on at 09:24; Start 04/14/18 at 08:00; Stop 04/23/18 at 18:30; Status DC Baclofen (Lioresal) 5 mg TID PO ; Start 04/14/18 at 09:00; Stop 04/14/18 at 09: 00; Status DC Buspirone HCl (Buspar) 10 mg TID PO ; Start 04/14/18 at 09:00; Stop 04/14/18 at 09:00; Status DC Cyanocobalamin (Vitamin B-12) 500 mcg DAILY PO Last administered on 04/23/18at 09:24; Start 04/14/18 at 09:00; Stop 04/23/18 at 18:30; Status DC Finasteride (Proscar) 5 mg DAILY PO Last administered on 04/23/18at 09:23; Start 04/14/18 at 09:00; Stop 04/23/18 at 18:30; Status DC Polyethylene Glycol (miraLAX) 17 gm DAILY PO Last administered on 04/23/18at 09: 27; Start 04/14/18 at 09:00; Stop 04/23/18 at 18:30; Status DC Trazodone HCl (Desyrel) 50 mg QHS PO ; Start 04/13/18 at 23:00; Stop 04/13/18 at 23:00; Status DC Venlafaxine HCl (Effexor Xr) 112.5 mg DAILY PO ; Start 04/14/18 at 09:00; Stop 04/14/18 at 09:00; Status DC Baclofen (Lioresal) 5 mg TID PO Last administered on 04/23/18at 13:54; Start at 23:00; Stop 04/23/18 at 18:30; Status DC Baclofen (Lioresal) 5 mg TID PO ; Start 04/13/18 at 23:00; Status UNV Trazodone HCl (Desyrel) 50 mg QHS PO Last administered on 04/22/18at 20:28; Start 04/13/18 at 23:15; Stop 04/23/18 at 18:30; Status DC Venlafaxine HCl (Effexor Xr) 112.5 mg DAILY PO Last administered on 04/15/18at 09:47; Start 04/14/18 at 09:00; Stop 04/15/18 at 17:23; Status DC Buspirone HCl (Buspar) 10 mg TID PO Last administered on 04/23/18at 13:54; Start 04/13/18 at 23:15; Stop 04/23/18 at 18:30; Status DC Insulin Human Lispro (HumaLOG) 0-5 UNITS TIDWMEALS SQ Last administered on 04/23at 12:30; Start 04/14/18 at 08:00; Stop 04/23/18 at 18:30; Status DC Dextrose 12.5 gm PRN Q15MIN PRN IV SEE COMMENTS; Start 04/13/18 at 23:15; Stop 04/23/18 at 18:30; Status DC Influenza Virus Vaccine (Afluria Trivalent Syringe) 0.5 ml ONCE ONCE VAX IM ; Start 04/14/18 at 09:00; Stop 04/14/18 at 09:01; Status UNV Influenza Virus Vaccine (Lowdownapp Ltduria Trivalent Syringe) 0.5 ml ONCE ONCE VAX IM Last administered on 04/15/18at 10:52; Start 04/14/18 at 09:00; Stop at 09:01; Status DC Duloxetine HCl (Cymbalta) 30 mg DAILY PO Last administered on 04/19/18at 08:07; Start 04/16/18 at 09:00; Stop 04/19/18 at 16:51; Status DC Duloxetine HCl (Cymbalta) 30 mg QHS PO Last administered on 04/22/18at 20:28; Start 04/19/18 at 21:00; Stop 04/23/18 at 18:30; Status DC Active Scripts Active Reported Milk Of Magnesia (Magnesium Hydroxide) 400 Mg/5 Ml Oral.susp 2,400 Mg PO PRN QHS PRN Mag-Al Plus Xs Suspension (Mag Hydrox/Al Hydrox/Simeth) 30 Ml Oral.susp 15 Ml PO PRN AFTMEALHC PRN Cymbalta (Duloxetine Hcl) 30 Mg Capsule.dr 30 Mg PO QHS Tylenol (Acetaminophen) 325 Mg Tablet 650 Mg PO PRN Q6HRS PRN Analgesic Hickory (Methyl Salicylate/Menthol) 28 Gm Oint...g. 1 Sarah TP PRN QID PRN Humalog (Insulin Lispro) 100 Unit/1 Ml Insuln.pen 0-5 Unit SQ TIDWMEALS Buspirone Hcl 10 Mg Tablet 10 Mg PO TID Trazodone Hcl 50 Mg Tablet 50 Mg PO HS Lantus Solostar (Insulin Glargine,Hum.rec.anlog) 100 Unit/1 Ml Insuln.pen 36 Unit SQ BID Baclofen 10 Mg Tablet 5 Mg PO TID Humalog (Insulin Lispro) 100 Unit/1 Ml Insuln.pen 32 Unit SQ TIDWMEALS Miralax (Polyethylene Glycol 3350) 17 Gm Powd.pack 17 Gm PO DAILY Lisinopril 10 Mg Tablet 10 Mg PO DAILY Finasteride 5 Mg Tablet 5 Mg PO DAILY B-12 (Cyanocobalamin (Vitamin B-12)) 500 Mcg Tablet 500 Mcg PO DAILY Clopidogrel (Clopidogrel Bisulfate) 75 Mg Tablet 75 Mg PO DAILY Vitamin D3 (Cholecalciferol (Vitamin D3)) 1,000 Unit Tablet 1,000 Unit PO DAILY Bisacodyl 5 Mg Tablet. 5 Mg PO PRN DAILY PRN Amlodipine Besylate 5 Mg Tablet 5 Mg PO DAILY Aspirin Ec (Aspirin) 81 Mg Tablet. 81 Mg PO DAILY I have reviewed the current psychotropics carefully including drug interactions. Risk benefit ratio favors no change other than as noted in my dictated progress note. Diagnosis: Problems: (1) Depression (2) Impulse control disorder (3) Major neurocognitive disorder, due to vascular disease, with behavioral disturbance, mild (4) Vascular dementia with behavioral disturbance ANTHONY MCMAHAN MD Apr 24, 2018 21:00
--- NOTE | 2018-04-24 21:55 | DS ---
DATE OF DISCHARGE: 04/23/2018 DISCHARGE SUMMARY/PSYCHIATRIC PROGRESS NOTE This late entry 04/23/2018 covers elements not covered in my initial note 04/23/2018. REASON FOR ADMISSION: Please refer to the admission history for details. Briefly, the patient is a 73-year-old male referred to us from [facility] by Dr. Annelise Ruiz, his primary care physician on account of making suicidal statements and threatening to strangle his roommate with a call light. He reportedly told the staff that the devil told him to do these things. He had been depressed, psychotic, had failed outpatient psychiatric interventions including outpatient psychotherapy, referred for inpatient psychiatric stabilization. SIGNIFICANT FINDINGS AND CLINICAL COURSE: Following admission, the patient was seen daily individually from a psychiatric standpoint by myself and followed medically per Dr. Elizondo/Dr. Lucas. The patient was somewhat depressed, withdrawn, anxious, hyperverbal. After the initial admission, he denied suicidal or homicidal ideation. Adjustments were made in his psychotropics. He seemed to respond to a combination of Cymbalta 30 mg a day, BuSpar 10 mg 3 times a day, trazodone 50 mg at bedtime, Seroquel 25 mg at bedtime was added to augment the Cymbalta and as an atypical antipsychotic given his psychotic symptoms, presenting as suicidal and homicidal ideation at admission. Gradually mood appeared to improve. He was more interactive. Denied suicidal or homicidal ideation. Prior to discharge on 04/23/2018, ambulation impaired, in wheelchair. REVIEW OF SYSTEMS: No CV, , pulmonary, eye system symptoms on review. MENTAL STATUS EXAM: Oriented to himself and situation. Speech coherent, rapid at times. Abstraction fair, computation impaired, language function intact, attention span short. Mood and affect was less depressed, still somewhat anxious. No suicidal or homicidal ideation prior to discharge. CONDITION ON DISCHARGE: Improved. I did receive further information from Dr. Ruiz indicating the patient has been treated at the [facility] in the past on a combination of Depakote and Geodon for his mood swings and developed elevated liver enzymes and ammonia and that is why the Depakote was discontinued as was the Geodon. We discussed restarting psychotherapy once he returns home. FINAL DIAGNOSES: Major depressive disorder, recurrent with psychotic features, rule out bipolar 1 disorder, depressed with psychotic features; anxiety disorder, unspecified; cognitive disorder, unspecified; impulse control disorder, unspecified. PLAN: The patient was discharged somewhat earlier than we recently planned since the patient's daughter was very insistent on him returning back to [facility]. DISCHARGE MEDICATIONS: Please refer to the MRAD. DISCHARGE INSTRUCTIONS: Outpatient psychiatric and medical followup at [facility]. Time for discharge day management greater than 30 minutes. MAN Refugio MCMAHAN MD DR: CHRISTIAN/yudi JOB#: [id number] / [id number]
== END 2018-04-23 16:45 | DRG 885 ==
LOC: ER 18:26 → GEROPSY 22:40
PROVIDERS: ADMIT Psychiatry & Neurology Psychiatry; ATTEND Psychiatry & Neurology Psychiatry
DX: F31.5 Bipolar disorder, current episode depressed, severe, with psychotic features (principal); K83.1 Obstruction of bile duct; F01.51 Vascular dementia, unspecified severity, with behavioral disturbance; G82.20 Paraplegia, unspecified; I13.0 Hypertensive heart and chronic kidney disease with heart failure and stage 1 through stage 4 chronic kidney disease, or unspecified chronic kidney disease; R45.851 Suicidal ideations; I69.354 Hemiplegia and hemiparesis following cerebral infarction affecting left non-dominant side; D50.9 Iron deficiency anemia, unspecified; E03.9 Hypothyroidism, unspecified; E11.22 Type 2 diabetes mellitus with diabetic chronic kidney disease; E78.00 Pure hypercholesterolemia, unspecified; E78.5 Hyperlipidemia, unspecified; F41.9 Anxiety disorder, unspecified; F63.9 Impulse disorder, unspecified; I50.9 Heart failure, unspecified; K59.09 Other constipation; K21.9 Gastro-esophageal reflux disease without esophagitis; K75.81 Nonalcoholic steatohepatitis (NASH); N18.9 Chronic kidney disease, unspecified; N40.0 Benign prostatic hyperplasia without lower urinary tract symptoms; Z66 Do not resuscitate; Z79.4 Long term (current) use of insulin; Z87.891 Personal history of nicotine dependence; Z88.8 Allergy status to other drugs, medicaments and biological substances; Z79.899 Other long term (current) drug therapy; Z90.49 Acquired absence of other specified parts of digestive tract
CPT/HCPCS: 36415; 70450; 71045; 76700; 80048; 80053; 80061; 80076; 81001; 82306; 82550; 82607; 82947; 83036; 83540; 83550; 83690; 83735; 83880; 84436; 84443; 84480; 84484; 85025; 85379; 85610; 85651; 85730; 86592; 90471; 90756; 93005; 93970; 96360; 96361; J1815; J7120; 99285-25; Q2035